=== PATIENT | female | born 1940 | race Caucasian/White ===

== ENCOUNTER 2017-07-17 11:39 | Inpatient (IN) | payer MEDICARE, OTHER ==
[~2017-07-17] VITALS: Ht 160 cm; Wt 74.6 kg
[2017-07-17] MEDS ORDERED: IPRATROPIUM BROMIDE 0.02% 2.5 ML NEB NEB STA (11:52)
[2017-07-17] MEDS ORDERED: ALBUTEROL SULF 0.083% NEB SOLN 3 ML NEB NEB STA (11:52)
[2017-07-17] MEDS ORDERED: CEFTRIAXONE SOD 1 GM VIAL IV SCH ×2 (12:00→14:45)
[2017-07-17 12:44] LABS: BASOPHILS # (AUTO) 0.1 (0.0-0.1); BASOPHILS % 0.7 % (0.0-1.0); EOSINOPHILS % 0.4 % (0.0-6.0); HEMATOCRIT 28.2 % (34.2-44.1); HEMOGLOBIN 9.1 g/dL (12.0-16.0); LYMPHOCYTES % 11.2 % (18.0-39.1); MEAN CORPUSCULAR HEMOGLOBIN 32.6 pg (28-32); MEAN CORPUSCULAR HGB CONC 32.3 g/dL (31-35); MEAN CORPUSCULAR VOLUME 101.1 fL (81-99); MONOCYTES # (AUTO) 0.6 (0.2-0.8); MONOCYTES % 6.5 % (4.4-11.3); NEUTROPHILS # (AUTO) 7.4 (2.1-6.9); NEUTROPHILS % 80.7 % (38.7-80.0); PLATELET COUNT 343 x10e3/uL (140-360); RED BLOOD COUNT 2.79 x10e6/uL (3.6-5.1); RED CELL DISTRIBUTION WIDTH 19.8 % (11.7-14.4)
--- NOTE | 2017-07-17 13:03 | Diagnostic Imaging Report ---
EXAMINATION: CHEST SINGLE (PORTABLE) INDICATION: \S\ERMD ORDER \S\[id number] \S\1235 \S\Y COMPARISON: None FINDINGS: AP view TUBES and LINES: Right chest wall cardiac pacer with lead tips overlying the right atrium and right ventricle. LUNGS: Lungs are moderately inflated. Hilar fullness with bilateral interstitial opacities. Right basilar airspace opacity which is partially obscured by the cardiac pacer. PLEURA: Trace bilateral pleural effusions. No pneumothorax. HEART AND MEDIASTINUM: Cardiac silhouette is partially obscured but likely enlarged. Aortic arch calcifications. BONES AND SOFT TISSUES: No acute osseous lesion. Soft tissues are unremarkable. UPPER ABDOMEN: No free air under the diaphragm. IMPRESSION: 1. Interstitial pulmonary edema with trace bilateral pleural effusions. 2. Right basilar airspace opacity may represent atelectasis, edema, or developing consolidation. Signed by: DR. Talon Vang MD on 07/17/2017 12:59 PM
[2017-07-17 13:04] LABS: ALBUMIN 3.3 g/dL (3.5-5.0); ALBUMIN/GLOBULIN RATIO 0.9 (0.8-2.0); ANION GAP 22.4 mmol/L (8-16); CALCIUM 10.6 mg/dL (8.4-10.2); CREATININE, SERUM 5.12 mg/dL (0.57-1.11)
[2017-07-17 13:05] LABS: INR 1.21; PARTIAL THROMBOPLASTIN TIME 23.8 seconds (23.8-35.5); PROTHROMBIN TIME 14.4 seconds (11.9-14.5)
[2017-07-17 13:06] LABS: POTASSIUM 4.4 mmol/L (3.5-5.1)
[2017-07-17 13:10] LABS: CREATINE KINASE MB 1.4 ng/mL (0-5.0)
[2017-07-17] MEDS ORDERED: ADENOSINE 6MG/2ML 0 ML ONE (13:24)
[2017-07-17 13:40] LABS: B-TYPE NATRIURETIC PEPTIDE2 > 5000.0 pg/mL (0-100)
[2017-07-17] MEDS ORDERED: AZITHROMYCIN 500MG/NS 250 ML 250 ML IV ONE (13:45)
[2017-07-17] MEDS: CEFTRIAXONE SOD 1 GM VIAL IV SCH (13:48)
[2017-07-17] MEDS ORDERED: FUROSEMIDE INJ 10 MG/ML 4 ML VIAL IV ONE (14:30)
[2017-07-17] MEDS ORDERED: AZITHROMYCIN 500MG/SOD CHL 0.9% 250ML BAG IV SCH (14:45)
[2017-07-17] MEDS ORDERED: ASPIRIN 325 MG TAB PO ONE (14:45)
[2017-07-17] MEDS ORDERED: RENVELA0.8 GM PO (15:31)
[2017-07-17] MEDS ORDERED: DIALYVITE 800-1 EACH PO (15:31)
[2017-07-17] MEDS ORDERED: FUROSEMIDE40 MG PO (15:31)
[2017-07-17] MEDS ORDERED: CARVEDILOL12.5 MG PO (15:31)
[2017-07-17] MEDS ORDERED: HUMALOG MI100 UNIT/2 SC (15:31)
[2017-07-17] MEDS ORDERED: ISOSORBIDE MONO30 MG PO (15:31)
[2017-07-17] MEDS ORDERED: NIFEDIPINE ER30 M1 PO (15:31)
[2017-07-17] MEDS ORDERED: PLAVIX75 MG PO (15:31)
[2017-07-17] MEDS ORDERED: FERROUS SULFAT325 MG PO (15:34)
[2017-07-17] MEDS ORDERED: NIACIN500 M2 PO (15:34)
[2017-07-17] MEDS ORDERED: VITAMIN D1000 UNI1 PO (15:34)
[2017-07-17 15:44] LABS: BILIRUBIN,URINE NEGATIVE (NEGATIVE); CLARITY,URINE CLEAR (CLEAR); COLOR,URINE YELLOW (YELLOW); KETONES,URINE NEGATIVE (NEGATIVE); LEUKOCYTE ESTERASE ,URINE NEGATIVE (NEGATIVE); NITRITE,URINE NEGATIVE (NEGATIVE); PROTEIN,URINE DIPSTICK 3+ (NEGATIVE); URINE UROBILINOGEN 0.2 mg/dL (0.2 - 1)
[2017-07-17 15:46] LABS: EPITHELIAL CELLS,URINE FEW /LPF; RBC,URINE 0-5 /HPF (0-5); WBC,URINE (MAN) 0-5 /HPF (0-5)
--- NOTE | 2017-07-17 16:01 | Diagnostic Imaging Report ---
EXAM: CT Chest WITH contrast 07/17/2017 1:32 PM INDICATION: \S\SOB r/o PE COMPARISON: Chest radiograph 07/17/2017 TECHNIQUE: Chest was scanned utilizing a multidetector helical scanner from the lung apex through the level of the adrenal glands without administration of IV contrast. Coronal and sagittal reformations were obtained. PE protocol was performed. IV CONTRAST: 100mL of Isovue-370 COMPLICATIONS: None RADIATION DOSE: Total DLP: 515.5 mGy*cm Estimated effective dose: (DLP x 0.014 x size factor) mSv CTDIvol has been reviewed. It is below the limits set by the Radiation Protocol Committee (RPC). FINDINGS: LINES/ TUBES: Right chest wall cardiac pacer with leads in the right atrium and right ventricle. LUNGS AND AIRWAYS: Smooth interlobular septal thickening and dependent groundglass opacities in keeping with pulmonary edema. Scattered atelectasis, more prominent in the right middle lobe and both lower lobes. Airways are normal. PLEURA: Moderate right and small left pleural effusions. No pneumothorax. HEART AND MEDIASTINUM: Right thyroid lobe 1.3 cm nodule. Limited evaluation of the right thyroid lobe secondary to metallic streak artifacts. No mediastinal, hilar or axillary lymphadenopathy. Heart is enlarged.. There is no pericardial effusion. Mitral annular calcifications. Three-vessel coronary artery calcifications and scattered aortic calcifications. No filling defects in the pulmonary arteries to the level of the subsegmental pulmonary arteries. Main pulmonary artery measures 2.6 cm in diameter. Ascending aorta measures 3.2 cm in diameter. UPPER ABDOMEN: Reflux of contrast into the hepatic veins suggestive of right heart dysfunction. Diffuse vascular calcifications. Otherwise, the limited views are grossly unremarkable. BONES: No acute or suspicious osseous lesions. SOFT TISSUES: Unremarkable. IMPRESSION: 1. Interstitial edema with moderate right and small left pleural effusions. 2. No pulmonary embolus to the level of the subsegmental pulmonary arteries. Signed by: DR. Talon Vagn MD on 07/17/2017 3:57 PM
--- NOTE | 2017-07-17 16:53 | Consultation ---
DATE OF CONSULTATION: July 17, 2017 RENAL CONSULTATION Thank you for the consultation. HISTORY OF PRESENT ILLNESS: Ms. Loza is a well known patient of ours, 77-year-old female patient with past medical history significant for end-stage renal disease on hemodialysis Wednesday, Wednesday, and Wednesday at [facility] under our care. The patient apparently started to have more worsening shortness of breath, went to her primary care physician this morning, was asked to go to the ER for possible pneumonia. In the emergency room, she had a chest x-ray done and chest x-ray is consistent with interstitial pulmonary edema with trace bilateral pleural effusions, also right basilar opacity which could be a pneumonia as well. In any case, the patient is being admitted to the hospital. She is in need for a short dialysis treatment today especially since the patient did dialyze yesterday; however, did not stay for her full treatment and she appears on the fluid overload status at this time. No current nausea. No current vomiting. No chest pain. No abdominal pain. Does have shortness of breath. No other symptoms. No fever or chills at this time. PAST MEDICAL HISTORY: End-stage renal disease, on hemodialysis Wednesday, Wednesday, and Wednesday, history of diabetes mellitus type 2, history of hypertension, and history of congestive heart failure. MEDICATIONS: She takes carvedilol, Plavix, furosemide, insulin, nifedipine, and sevelamer. REVIEW OF SYSTEMS: See HPI, otherwise all systems negative. ALLERGIES: SULFONAMIDES AND LABETALOL. SOCIAL HISTORY: No tobacco, no alcohol use. FAMILY HISTORY: Noncontributory. PHYSICAL EXAMINATION VITAL SIGNS: Blood pressure is 125/43, heart rate 83, respirations 23, and afebrile. HEENT: No cervical lymphadenopathy. NECK: Supple without masses. No obvious JVD. Moist-appearing mucosa. SKIN: Moist with good skin turgor. CHEST WALL: Good expansion. No chest wall tenderness. LUNGS: Rales diffusely bilaterally over the lung wells. CARDIOVASCULAR: S1 and S2. No obvious gallop, rub, or murmur. ABDOMEN: Soft. Positive bowel sounds. Nontender. No organomegaly. EXTREMITIES: Evidence of 2+ edema bilaterally over lower extremities. No clubbing. No cyanosis. NEUROLOGICAL: Awake, alert, oriented x 3. Grossly otherwise nonfocal exam. LABORATORY DATA: Labs from today are as follows: Hemoglobin 9.1, hematocrit 28.2, sodium 141, potassium 4.4, chloride 100, bicarb 23, BUN is 39, creatinine is 5.1, and glucose 194. IMPRESSION AND PLAN 1. End-stage renal disease. We will continue dialysis Wednesday, Wednesday, and Wednesday and we will do a dialysis treatment today for two and half hours. We will try to ultrafilter about 2 to 3 liters, which will help improve the patient's overall breathing status. 2. Hypertension. Blood pressure is currently stable. Continue to monitor closely and make further recommendations. 1. Anemia found to be stable. We will continue to monitor closely. 1. Pneumonia: Plan would be as per primary MD. Thank you once again for the consult. Job#: [id number] PAT cc:Lara Ewing MD
[2017-07-17 17:18] VITALS: BP 109/55
[2017-07-17] MEDS ORDERED: SODIUM CHLORIDE 0.9% 50ML 100 ML ONE (18:32)
[2017-07-17] MEDS ORDERED: IOPAMIDOL 370 MG/ML 200 ML INFUS..BTL INJ ONE (18:32)
[2017-07-17] MEDS ORDERED: ALBUMIN 25% 12.5GM 0.25 GM/ML BTL IV PRN (19:15)
[2017-07-17] MEDS ORDERED: SODIUM CHLORIDE 0.9% 1000ML 2,000 ML IV PRN (19:15)
[2017-07-17] MEDS ORDERED: MANNITOL 25% 12.5GM/50 ML VIAL IV PRN (19:15)
[2017-07-17] MEDS ORDERED: SODIUM CHLORIDE 0.9% 250ML 500 ML IV PRN (19:15)
[2017-07-17 19:42] VITALS: BP 109/55
[2017-07-17 20:31] VITALS: BP 116/55
[2017-07-17 23:54] VITALS: BP 112/42
[2017-07-18] VITALS (33 sets, daily range): BP systolic 37–156; BP diastolic 20–78
[2017-07-18] MEDS: CEFTRIAXONE SOD 1 GM VIAL IV SCH ×2 (02:00→14:16)
[2017-07-18 06:26] LABS: BASOPHILS # (AUTO) 0.1 (0.0-0.1); BASOPHILS % 0.7 % (0.0-1.0); EOSINOPHILS # (AUTO) 0.1 (0.0-0.4); EOSINOPHILS % 1.1 % (0.0-6.0); HEMATOCRIT 24.7 % (34.2-44.1); LYMPHOCYTES # (AUTO) 1.1 (1.0-3.2); LYMPHOCYTES % 13.8 % (18.0-39.1); MEAN CORPUSCULAR HGB CONC 31.6 g/dL (31-35); MEAN CORPUSCULAR VOLUME 101.2 fL (81-99); MONOCYTES # (AUTO) 0.5 (0.2-0.8); NEUTROPHILS # (AUTO) 6.4 (2.1-6.9); NEUTROPHILS % 77.8 % (38.7-80.0); PLATELET COUNT 245 x10e3/uL (140-360); RED BLOOD COUNT 2.44 x10e6/uL (3.6-5.1); RED CELL DISTRIBUTION WIDTH 19.8 % (11.7-14.4)
[2017-07-18 06:29] LABS: HEMOGLOBIN 7.8 g/dL (12.0-16.0)
[2017-07-18 06:44] LABS: ANION GAP 18.4 mmol/L (8-16); CALCIUM 10.1 mg/dL (8.4-10.2); CREATININE, SERUM 4.18 mg/dL (0.57-1.11); MAGNESIUM 1.9 MG/DL (1.3-2.1); PHOSPHORUS 6.4 MG/DL (2.3-4.7); POTASSIUM 4.4 mmol/L (3.5-5.1)
[2017-07-18 06:58] LABS: CREATINE KINASE MB 1.1 ng/mL (0-5.0)
[2017-07-18 08:46] LABS: HEMATOCRIT 24.9 % (34.2-44.1)
[2017-07-18] MEDS ORDERED: CARVEDILOL 12.5 MG TAB PO SCH (09:00)
[2017-07-18] MEDS: ASPIRIN 81 MG ENTERIC COATED PO SCH (09:10)
[2017-07-18] MEDS: ISOSORBIDE MONONITRATE 30 MG TAB CR PO SCH ×2 (09:11→17:00)
--- NOTE | 2017-07-18 10:11 | Consultation ---
DATE OF CONSULTATION: July 18, 2017 CARDIOLOGY CONSULTATION REASON FOR CONSULTATION: Congestive heart failure. HISTORY OF PRESENT ILLNESS: Ms. 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 Was readmitted after she saw her primary care physician and was found to have a pneumonia on her chest x-ray with mild increase in shortness of breath. However, no fever or cough. Since admission she has had a chest x-ray and chest CT scan that shows bilateral effusions without evidence of consolidation. She is currently feeling better but continues to be weak and debilitated. PAST MEDICAL HISTORY: As listed above. SOCIAL HISTORY: Patient does not smoke at present. Denies using alcohol. DRUG ALLERGIES: SULFA AND LABETALOL. FAMILY HISTORY: Noncontributory. REVIEW OF SYSTEMS: Is negative except as dictated in the history of present illness. PHYSICAL EXAMINATION: VITALS: Afebrile. Heart rate 77. Blood pressure 134/62. O2 sat is 95% on 2 liters nasal cannula. CARDIOVASCULAR: Regular rhythm. S3 gallop. Systolic murmur. LUNGS: Crackles in both sides with decreased breath sounds, more so on the right base. Chest x-ray, CT scan were reviewed. ABDOMEN: Mildly distended. Hemoglobin is 8. Serum creatinine 4.18. BNP is in excess of 5000. Cardiac troponin is 0.36. ASSESSMENT: 1. Acute on chronic systolic heart failure. 2. Volume overload in the setting of end-stage renal disease. 3. Severe coronary artery disease. 4. Supraventricular tachycardia with a prior history of symptomatic bradycardia status post dual-chamber pacemaker placement. RECOMMENDATION: Ms. Loza has severe coronary artery disease. I will review her angiogram done at [place]. Echocardiogram has been ordered. She is a candidate for either high-risk percutaneous coronary intervention or high-risk coronary artery bypass surgery as definitive therapy for her coronary artery disease. In the interim, aggressive dialysis with removal of fluid as tolerated. Beta azalia, statin, nitrates, and aspirin has been reinitiated. I will withhold clopidogrel treatment given a potential for upcoming coronary bypass surgery. I thank Dr. Ewing for this consultation. Job#: [id number] EV
[2017-07-18] MEDS: AZITHROMYCIN 500MG/NS 250 ML 250 ML IV SCH (13:15)
[2017-07-18] MEDS ORDERED: ALBUTEROL/IPRATROPIUM 3 ML NEB ONE (14:37)
[2017-07-18 14:41] LABS: BASOPHILS % 0.5 % (0.0-1.0); EOSINOPHILS # (AUTO) 0.1 (0.0-0.4); HEMATOCRIT 25.2 % (34.2-44.1); LYMPHOCYTES # (AUTO) 0.9 (1.0-3.2); LYMPHOCYTES % 12.5 % (18.0-39.1); MEAN CORPUSCULAR HEMOGLOBIN 32.8 pg (28-32); MEAN CORPUSCULAR VOLUME 105.9 fL (81-99); MONOCYTES # (AUTO) 0.5 (0.2-0.8); MONOCYTES % 6.7 % (4.4-11.3); NEUTROPHILS # (AUTO) 5.8 (2.1-6.9); NEUTROPHILS % 78.8 % (38.7-80.0); PLATELET COUNT 241 x10e3/uL (140-360); RED BLOOD COUNT 2.38 x10e6/uL (3.6-5.1); RED CELL DISTRIBUTION WIDTH 20.1 % (11.7-14.4)
[2017-07-18] MEDS ORDERED: ONDANSETRON HCL INJ 2 MG/ML VIAL ONE (14:41)
[2017-07-18 14:46] LABS: CREATINE KINASE MB 1.7 ng/mL (0-5.0)
[2017-07-18 14:47] LABS: HEMOGLOBIN 7.8 g/dL (12.0-16.0)
[2017-07-18 14:57] LABS: ANION GAP 22.3 mmol/L (8-16); POTASSIUM 5.3 mmol/L (3.5-5.1)
[2017-07-18] MEDS ORDERED: FUROSEMIDE INJ 10 MG/ML 4 ML VIAL IV ONE (15:00)
[2017-07-18] MEDS ORDERED: FUROSEMIDE INJ 10 MG/ML 4 ML VIAL IV NR (15:00)
[2017-07-18 15:09] LABS: ABG HCO3 20 mmol/L (23-28); ABG PCO2 25 mmHg (41-51); ABG PH 7.51 (7.31-7.41); ABG PO2 96 mmHg (80-105)
--- NOTE | 2017-07-18 15:16 | Diagnostic Imaging Report ---
EXAMINATION: CHEST SINGLE (PORTABLE) INDICATION: CHF. Pneumonia. COMPARISON: 07/17/2017. FINDINGS: AP view TUBES and LINES: Right chest wall cardiac pacer with lead tips overlying the right atrium and right ventricle, unchanged. LUNGS: Interval increase in bilateral pulmonary edema. PLEURA: Mild increase in bilateral pleural effusions. No pneumothorax. HEART AND MEDIASTINUM: Cardiac silhouette is moderately enlarged.. Aortic arch calcifications. BONES AND SOFT TISSUES: No acute osseous lesion. UPPER ABDOMEN: No free air under the diaphragm. IMPRESSION: Interval increase in bilateral pulmonary edema. Signed by: Dr. Avani Murrieta M.D. on 07/18/2017 3:12 PM
[2017-07-18] MEDS ORDERED: ALBUTEROL/IPRATROPIUM 3 ML NEB NEB ONE (15:45)
[2017-07-18] MEDS ORDERED: SODIUM BICARBONATE 8.4% INJ 50 ML SYR IV ONE (16:30)
[2017-07-18] MEDS ORDERED: SODIUM CHLORIDE 0.9% 250ML 250 ML IV ONE (16:30)
--- NOTE | 2017-07-18 16:49 | Progress Note ---
DATE: July 18, 2017 RENAL PROGRESS NOTE SUBJECTIVE: Patient was seen yesterday in the emergency room. She has been admitted for pneumonia and persistent fluid overload. She had a dialysis treatment of 2-1/2 hours yesterday. About 2.5 liters of fluid were pulled. However, this afternoon she is in more respiratory distress. Chest x-ray shows interval worsening of her pulmonary edema. Patient has been transferred to the ICU on BiPAP. Suspect cardiac origin of the pulmonary edema. Cardiology is on the case, also. Patient will likely require another dialysis treatment later this evening. Dialysis nurse has been contacted to come and dialyze the patient stat. No nausea, no vomiting. Does have shortness of breath. OBJECTIVE VITAL SIGNS: Vital signs are noted. Blood pressure, last one recorded, was 99/61. Pulse 60. Afebrile. LUNGS: Rhonchi bilaterally. CARDIOVASCULAR: S1 and S2. No rub. ABDOMEN: Soft, nontender. EXTREMITIES: No edema. LABS: H\T\H 7.8, 25.2. Sodium 135, potassium 5.3, bicarb of 19, chloride 99. Earlier bicarb was 23, potassium was 4.4, sodium was 138 and creatinine 4.18. IMPRESSION AND PLAN 1. End-stage renal disease. Will do stat dialysis again today. Patient is getting hyperkalemic and getting metabolic acidosis likely from hyperperfusion state. Patient may get transferred to [facility] for intra-aortic balloon pump if Cardiology deems that necessary. I have called the dialysis nurse in to do urgent dialysis. 2. Hypotension. Hold all blood pressure oral medications and place on renal-dose dopamine, titrate up as needed to keep systolic BP above 90 mmHg or MAP greater than 65. 3. Mild hyperkalemia. Will give 1 amp of bicarb IV push now and will do urgent dialysis as soon as the dialysis nurse is here. 4. Metabolic acidosis. Will correct with dialysis and also will give 1 to 2 amps of bicarb now. 5. Anemia. Will transfuse 2 units PRBCs with dialysis. Thank you once again. Job#: [id number] EV
[2017-07-18] MEDS ORDERED: SODIUM BICARBONATE 8.4% SYRING 50 ML ONE (18:31)
[2017-07-18] MEDS ORDERED: SODIUM CHLORIDE 0.9% 250ML 250 ML ONE (18:32)
--- NOTE | 2017-07-18 19:20 | Diagnostic Imaging Report ---
CHEST SINGLE (PORTABLE), 07/18/2017 6:37 PM Technique: CHEST SINGLE (PORTABLE) Comparison: 07/18/2017 Clinical history: Central line placement Findings: See Impression Impression: 1. Lines/Tubes: Status post right central venous catheter placement seen as far as the distal SVC, tip obscured by right pacer and overlying leads. 2. Stable cardiomegaly with bilateral opacities, favor edema, atelectasis and pleural effusions. No pneumothorax. Signed by: Dr Evelyn Niño MD on 07/18/2017 7:16 PM
[2017-07-18] MEDS ORDERED: ATORVASTATIN 20 MG TAB PO SCH (21:00)
[2017-07-18] MEDS: ATORVASTATIN 40 MG TAB PO SCH (21:00)
[2017-07-19] VITALS (64 sets, daily range): BP systolic 43–151; BP diastolic 31–91
[2017-07-19] MEDS: CEFTRIAXONE SOD 1 GM VIAL IV SCH ×2 (02:15→13:53)
[2017-07-19 06:30] LABS: BASOPHILS % 0.4 % (0.0-1.0); EOSINOPHILS # (AUTO) 0.1 (0.0-0.4); HEMATOCRIT 29.1 % (34.2-44.1); HEMOGLOBIN 9.7 g/dL (12.0-16.0); LYMPHOCYTES # (AUTO) 0.8 (1.0-3.2); LYMPHOCYTES % 8.1 % (18.0-39.1); MEAN CORPUSCULAR HEMOGLOBIN 32.1 pg (28-32); MEAN CORPUSCULAR HGB CONC 33.3 g/dL (31-35); MEAN CORPUSCULAR VOLUME 96.4 fL (81-99); MONOCYTES # (AUTO) 0.6 (0.2-0.8); MONOCYTES % 6.4 % (4.4-11.3); NEUTROPHILS # (AUTO) 7.9 (2.1-6.9); NEUTROPHILS % 83.6 % (38.7-80.0); PLATELET COUNT 220 x10e3/uL (140-360); RED BLOOD COUNT 3.02 x10e6/uL (3.6-5.1); RED CELL DISTRIBUTION WIDTH 20.9 % (11.7-14.4)
--- NOTE | 2017-07-19 06:32 | Diagnostic Imaging Report ---
CHEST SINGLE (PORTABLE), 07/19/2017 5:00 AM Technique: CHEST SINGLE (PORTABLE) Comparison: 07/18/2017 Clinical history: Dyspnea, fluid overload Findings: See Impression Impression: 1. Lines/Tubes: Status post right central venous catheter seen as far as the cavoatrial junction and right pacer. 2. Stable cardiomegaly with bilateral opacities, favor edema, atelectasis and pleural effusions. No pneumothorax. Signed by: Dr Evelyn Niño MD on 07/19/2017 6:28 AM
[2017-07-19 07:04] LABS: ANION GAP 15.6 mmol/L (8-16); CALCIUM 10.2 mg/dL (8.4-10.2); CREATININE, SERUM 3.2 mg/dL (0.57-1.11); MAGNESIUM 1.7 MG/DL (1.3-2.1); PHOSPHORUS 5.4 MG/DL (2.3-4.7); POTASSIUM 3.6 mmol/L (3.5-5.1)
[2017-07-19] MEDS: ISOSORBIDE MONONITRATE 30 MG TAB CR PO SCH ×2 (08:43→18:10)
[2017-07-19] MEDS: ASPIRIN 81 MG ENTERIC COATED PO SCH (08:43)
--- NOTE | 2017-07-19 10:03 | Progress Note ---
DATE: July 19, 2017 REASON FOR CONSULTATION: End-stage renal disease. SUBJECTIVE: No acute events overnight. Laying comfortably in bed. PHYSICAL EXAMINATION GENERAL: Laying comfortably in bed in no acute distress. VITAL SIGNS: Heart rate 72, respiratory rate 18, blood pressure 111/78, O2 sat is 99%. CHEST: Clear to auscultation bilaterally. No wheezing. No rales. HEART: Regular rate and rhythm. No S3 or S4. ABDOMEN: Soft, nontender and nondistended. EXTREMITIES: No edema. Labs reviewed in electronic medical records. Significant for hemoglobin of 9.7. Potassium was 36, bicarb 30. MEDICATIONS: Reviewed in the electronic medical record. IMAGING: Was reviewed in the electronic medical record. Chest x-ray performed today showed bilateral opacities concerning for edema. ASSESSMENT AND PLAN 1. End-stage renal disease: Will continue dialysis on a TTS schedule. 2. Volume overload: Fluid removed yesterday. Will continue removal as tolerated with dialysis. 3. Anemia of end-stage renal disease: Hemoglobin 9.7. Will resume Epo as an outpatient. 4. Metabolic acidosis: Improved with dialysis. Job#: [id number] RUBÉN
[2017-07-19] MEDS: AZITHROMYCIN 500MG/NS 250 ML 250 ML IV SCH (13:53)
--- NOTE | 2017-07-19 14:04 | Progress Note ---
DATE: July 19, 2017 CARDIOLOGY PROGRESS NOTE SUBJECTIVE: Patient denies chest pain or shortness of breath. She was seen sitting up in a chair at bedside. She has been weaned off vasopressors. OBJECTIVE VITALS: Temperature 97.7 degrees, pulse 65, respiratory rate 16, blood pressure 108/56, oxygen saturation 100% on 6 L nasal cannula. GENERAL: Thin woman, in no acute distress. Awake, alert. LUNGS: Crackles bilateral bases. No wheezes. CARDIOVASCULAR: Normal rate, regular rhythm. Systolic murmur. Normal S1, S2. ABDOMEN: Soft, nontender. EXTREMITIES: 1+ pitting edema. CARDIAC MEDICATIONS 1. Isosorbide mononitrate 30 mg p.o. b.i.d. 2. Aspirin 81 mg p.o. daily. 3. Atorvastatin 40 mg p.o. at bedtime. LABS: WBC 9.4, hemoglobin 9.7, hematocrit 29.1, platelets 220. Sodium 138, potassium 3.6, chloride 96, CO2 of 30, BUN 25, creatinine 3.2. TELEMETRY: Normal sinus rhythm. IMPRESSION 1. Acute on chronic systolic heart failure. 2. Volume overload in the sitting of end-stage renal disease. 3. Multivessel coronary artery disease. 4. Supraventricular tachycardia with prior history of symptomatic bradycardia, status post dural-chamber pacemaker placement. 5. Anemia of chronic disease. RECOMMENDATIONS: Continue current cardiac medicines. We will review the patient's recent cath images from [place]. It appears she has severe coronary artery disease. Decision regarding revascularization will be based on her coronary anatomy after review. In the meantime, volume management per nephrology. Please diurese as tolerated. Please ultrafiltrate as tolerated. Thank you for this consult. We will continue to follow. Job#: [id number] ALEXEY
[2017-07-19] MEDS: ATORVASTATIN 40 MG TAB PO SCH (20:50)
[2017-07-20] VITALS (74 sets, daily range): BP systolic 106–156; BP diastolic 55–109
[2017-07-20] MEDS: CEFTRIAXONE SOD 1 GM VIAL IV SCH ×2 (01:45→14:00)
[2017-07-20 06:05] LABS: BASOPHILS # (AUTO) 0.1 (0.0-0.1); BASOPHILS % 0.5 % (0.0-1.0); EOSINOPHILS # (AUTO) 0.2 (0.0-0.4); EOSINOPHILS % 1.8 % (0.0-6.0); HEMATOCRIT 30.3 % (34.2-44.1); HEMOGLOBIN 9.9 g/dL (12.0-16.0); LYMPHOCYTES # (AUTO) 1.2 (1.0-3.2); LYMPHOCYTES % 12.7 % (18.0-39.1); MEAN CORPUSCULAR HGB CONC 32.7 g/dL (31-35); MEAN CORPUSCULAR VOLUME 98.1 fL (81-99); MONOCYTES # (AUTO) 0.7 (0.2-0.8); NEUTROPHILS # (AUTO) 7.5 (2.1-6.9); NEUTROPHILS % 77.4 % (38.7-80.0); PLATELET COUNT 249 x10e3/uL (140-360); RED BLOOD COUNT 3.09 x10e6/uL (3.6-5.1); RED CELL DISTRIBUTION WIDTH 20.7 % (11.7-14.4)
--- NOTE | 2017-07-20 06:29 | Diagnostic Imaging Report ---
CHEST SINGLE (PORTABLE), 07/20/2017 at 5:34 AM Technique: CHEST SINGLE (PORTABLE) Comparison: 07/19/2017 Clinical history: Dyspnea, fluid overload Findings: See Impression Impression: 1. Lines/Tubes: Right IJ central venous catheter is stable in good position. Right-sided pacemaker is stable. 2. Stable cardiomegaly with bilateral opacities, compatible with edema, atelectasis and pleural effusions. No pneumothorax. Signed by: Dr. Brian Page M.D. on 07/20/2017 6:26 AM
[2017-07-20 06:38] LABS: ALBUMIN 2.9 g/dL (3.5-5.0); ALBUMIN/GLOBULIN RATIO 1.2 (0.8-2.0); ANION GAP 17.6 mmol/L (8-16); CALCIUM 9.7 mg/dL (8.4-10.2); CREATININE, SERUM 4.59 mg/dL (0.57-1.11); POTASSIUM 4.6 mmol/L (3.5-5.1)
[2017-07-20] MEDS: ASPIRIN 81 MG ENTERIC COATED PO SCH (08:27)
[2017-07-20] MEDS: ISOSORBIDE MONONITRATE 30 MG TAB CR PO SCH ×2 (08:27→17:28)
[2017-07-20] MEDS ORDERED: EPOETIN ALFA 10000 UNIT/ML VIAL SC SCH (11:00)
[2017-07-20 12:43] LABS: FERRITIN 650.69 ng/mL (4.63-204.00)
--- NOTE | 2017-07-20 12:53 | Diagnostic Imaging Report ---
Procedure: Temporary central venous catheter placement. Indication: Need for short-term central venous access. Comparison: None. Discussion: The procedure is performed at the bedside in the intensive care unit. Focused evaluation demonstrated the right chest cardiac device and a left upper extremity hemodialysis fistula. A focused sonographic evaluation of the neck demonstrated a patent and compressible right internal jugular vein. The right neck was prepped and draped in the usual sterile fashion. Utilizing ultrasound guidance, a 21-gauge needle was inserted into the right internal jugular vein. A 0.018 inch wire was advanced centrally. An access sheath was placed over the wire to secure the access. The wire was up sized to a 0.035 inch wire. A 0.035 inch wire was advanced into the inferior vena cava for stability. A single dilation was performed over the wire. A temporary central venous catheter was advanced over the wire. The wire was removed. The 3 ports demonstrated proper function with aspiration and flush. The lumens were flushed with sterile saline. The lumens were infused with heparin solution. The catheter was secured to the skin with 3-0 Ethilon suture. A sterile dressing was applied. There were no complications and the patient tolerated the procedure well. The patient remained in the ICU in stable unchanged condition for further monitoring. Impression: Successful placement of right internal jugular temporary central venous catheter utilizing ultrasound guidance. Signed by: Dr. Jorge Almonte M.D. on 07/20/2017 12:50 PM
--- NOTE | 2017-07-20 13:41 | Progress Note ---
DATE: July 20, 2017 CARDIOLOGY PROGRESS NOTE SUBJECTIVE: Patient denies chest pain or shortness of breath. She was receiving hemodialysis today. OBJECTIVE VITALS: Temperature 97.9 degrees, pulse 68, respiratory rate 18, blood pressure 138/66, oxygen saturation 100% on 2 L nasal cannula. GENERAL: Awake, alert, in no acute distress. LUNGS: Clear to auscultation bilaterally. No wheezes or crackles. CARDIOVASCULAR: Normal rate, regular rhythm. Systolic murmur. Normal S1, S2. ABDOMEN: Soft, nontender. EXTREMITIES: 1+ pitting edema. CARDIAC MEDICATIONS 1. Isosorbide mononitrate 30 mg p.o. b.i.d. 2. Aspirin 81 mg p.o. daily. 3. Atorvastatin 40 mg p.o. at bedtime. LABS: WBC 9.66, hemoglobin 9.9, hematocrit 30.3, platelets 249. Sodium 137, potassium 4.6, chloride 95, CO2 of 29, BUN 45, creatinine 4.59. TELEMETRY: Normal sinus rhythm. IMPRESSION 1. Acute on chronic systolic heart failure. 2. Volume overload in the sitting of end-stage renal disease. 3. Multivessel coronary artery disease. 4. Supraventricular tachycardia with prior history of symptomatic bradycardia, status post dural-chamber pacemaker placement. 5. Anemia of chronic disease. RECOMMENDATIONS: Continue current cardiac medications. Patient's cath images from [place] were reviewed. She has severe multivessel CAD. Patient reports; however, she was evaluated by CT surgery with regards to CABG. She declined proceeding as she felt the risk was too high. We will discuss with her outpatient telephone lineman, Dr. Holcomb, possible multivessel PCI. Volume management per nephrology due to end-stage renal disease. Recommend further ultrafiltration. Thank you for this consult. We will continue to follow. Job#: [id number] CINDY
[2017-07-20] MEDS: AZITHROMYCIN 500MG/NS 250 ML 250 ML IV SCH (14:00)
--- NOTE | 2017-07-20 16:14 | Progress Note ---
DATE: July 20, 2017 SUBJECTIVE: Seen on dialysis, blood flow of 350 mL per minute. PHYSICAL EXAMINATION LUNGS: Clear to auscultation bilaterally. No wheezing. No rales. HEART: Regular rhythm. ABDOMEN: Soft, nontender. EXTREMITIES: No edema. LABS: Reviewed in electronic medical record and significant for hemoglobin of 9.9 and BUN of 45. IMAGING: Reviewed in electronic medical record. Chest x-ray performed today showed stable cardiomegaly with bilateral opacities, compatible with edema. ASSESSMENT AND PLAN 1. End-stage renal disease, seen on dialysis today. We will continue HD on a Wednesday, , and Wednesday schedule. 2. Anemia of chronic kidney disease. We will check a TSAT and ferritin and resume Epogen. 3. Urinary tract infection. Continue ceftriaxone. 4. Hypertension. She is hypertensive at baseline. We will continue to monitor blood pressures closely. Job#: [id number] VAS
[2017-07-20] MEDS: ATORVASTATIN 40 MG TAB PO SCH (23:15)
[2017-07-21] VITALS (40 sets, daily range): BP systolic 133–163; BP diastolic 60–103
[2017-07-21] MEDS: CEFTRIAXONE SOD 1 GM VIAL IV SCH ×2 (01:46→13:45)
[2017-07-21 05:43] LABS: BASOPHILS # (AUTO) 0.1 (0.0-0.1); BASOPHILS % 0.9 % (0.0-1.0); EOSINOPHILS # (AUTO) 0.2 (0.0-0.4); EOSINOPHILS % 2.5 % (0.0-6.0); HEMATOCRIT 32.4 % (34.2-44.1); HEMOGLOBIN 10.4 g/dL (12.0-16.0); LYMPHOCYTES # (AUTO) 1.3 (1.0-3.2); LYMPHOCYTES % 13.7 % (18.0-39.1); MEAN CORPUSCULAR HEMOGLOBIN 31.7 pg (28-32); MEAN CORPUSCULAR HGB CONC 32.1 g/dL (31-35); MEAN CORPUSCULAR VOLUME 98.8 fL (81-99); MONOCYTES # (AUTO) 0.6 (0.2-0.8); NEUTROPHILS # (AUTO) 6.9 (2.1-6.9); NEUTROPHILS % 75.6 % (38.7-80.0); PLATELET COUNT 270 x10e3/uL (140-360); RED BLOOD COUNT 3.28 x10e6/uL (3.6-5.1); RED CELL DISTRIBUTION WIDTH 19.5 % (11.7-14.4)
[2017-07-21 06:06] LABS: ALBUMIN 2.9 g/dL (3.5-5.0); ANION GAP 16.2 mmol/L (8-16); CREATININE, SERUM 3.91 mg/dL (0.57-1.11); POTASSIUM 4.2 mmol/L (3.5-5.1)
--- NOTE | 2017-07-21 06:08 | Diagnostic Imaging Report ---
CHEST SINGLE (PORTABLE), 07/21/2017 5:00 AM Technique: CHEST SINGLE (PORTABLE) Comparison: 07/20/2017 Clinical history: Dyspnea, fluid overload Findings: See Impression Impression: 1. Lines/Tubes: Right IJ central venous catheter is stable in good position. Right-sided pacemaker is stable. 2. Worsening cardiogenic edema, compatible with edema. No pneumothorax Signed by: Dr. Brian Page M.D. on 07/21/2017 6:04 AM
[2017-07-21] MEDS: ISOSORBIDE MONONITRATE 30 MG TAB CR PO SCH ×2 (08:21→17:05)
[2017-07-21] MEDS: ASPIRIN 81 MG ENTERIC COATED PO SCH (08:21)
--- NOTE | 2017-07-21 10:44 | Progress Note ---
DATE: July 21, 2017 REASON FOR CONSULTATION: End-stage renal disease. SUBJECTIVE: No acute events overnight. OBJECTIVE GENERAL: Lying comfortably in bed. VITAL SIGNS: Heart rate 72, respiratory rate 18, blood pressure 140/69, and O2 sat is 95% on 4 L nasal cannula. LUNGS: Clear to auscultation bilaterally. No wheezing or rales. HEART: Regular rate and rhythm. EXTREMITIES: No edema. Labs reviewed in electronic medical record. Significant for hemoglobin of 10.4, BUN of 32, creatinine of 3.1. MEDICATIONS: Reviewed in electronic medical record. ASSESSMENT AND PLAN 1. End-stage renal disease: Electrolytes and volume status reviewed today. Will hold off on dialysis today. 2. Urinary tract infection: Will continue ceftriaxone. 3. Anemia of chronic kidney disease: Hemoglobin improved. Will decrease Epo to 2000 units. Job#: [id number] RUBÉN
[2017-07-21] MEDS: AZITHROMYCIN 500MG/NS 250 ML 250 ML IV SCH (13:00)
--- NOTE | 2017-07-21 18:26 | Progress Note ---
DATE: July 21, 2017 CARDIOLOGY PROGRESS NOTE SUBJECTIVE: The patient denies chest pain or shortness of breath. She is undergoing evaluation for transfer to [facility]. OBJECTIVE VITALS: Temperature 96.8 degrees, pulse 79, respiratory rate 18, blood pressure 147/68, oxygen saturation 95% on 4 L nasal cannula. GENERAL: Awake, alert and in no acute distress. LUNGS: Clear to auscultation bilaterally. No wheezes or crackles. CARDIOVASCULAR: Normal rate and regular rhythm. Systolic murmur. Normal S1 and S2. ABDOMEN: Soft and nontender. EXTREMITIES: One plus pitting edema. CARDIAC MEDICATIONS 1. Isosorbide mononitrate 30 mg p.o. b.i.d. 2. Aspirin 81 mg p.o. daily. 3. Atorvastatin 40 mg p.o. at bedtime. LABS: WBC 9.18, hemoglobin 10.4, hematocrit 32.4, and platelets 270,000. Sodium 137, potassium 4.2, chloride 100, CO2 25, BUN 32, creatinine 3.91. Telemetry is normal sinus rhythm. Chest x-ray with worsening cardiogenic edema. No pneumothorax. IMPRESSION 1. Osftg-[id number] systolic heart failure. 2. Volume overload in the setting of end-stage renal disease. 3. Multivessel coronary artery disease. 4. Supraventricular tachycardia with prior history of symptomatic bradycardia, status post dual chamber pacemaker placement. 5. Anemia of chronic disease. RECOMMENDATIONS: Continue current cardiac medications. The patient has severe multivessel coronary artery disease. However, after evaluation by CV surgery, she declined CABG as she felt the surgical risk was too high. We will have the patient follow up with us in the office to plan multivessel PCI with Dr. Holcomb. Volume management per nephrology due to end-stage renal disease. We will request further ultrafiltration given her significantly elevated BNP. Thank you for this consult. We will continue to follow. Job#: [id number] RUBÉN
[2017-07-21] MEDS: ATORVASTATIN 40 MG TAB PO SCH (23:01)
[2017-07-22] MEDS: CEFTRIAXONE SOD 1 GM VIAL IV SCH ×2 (01:36→13:45)
[2017-07-22 04:00] VITALS: BP 187/81
[2017-07-22 06:15] VITALS: BP 158/80
[2017-07-22 06:15] LABS: BASOPHILS # (AUTO) 0.1 (0.0-0.1); BASOPHILS % 0.7 % (0.0-1.0); EOSINOPHILS # (AUTO) 0.2 (0.0-0.4); EOSINOPHILS % 2.6 % (0.0-6.0); HEMATOCRIT 32.3 % (34.2-44.1); HEMOGLOBIN 10.6 g/dL (12.0-16.0); LYMPHOCYTES # (AUTO) 1.1 (1.0-3.2); LYMPHOCYTES % 12.5 % (18.0-39.1); MEAN CORPUSCULAR HEMOGLOBIN 31.5 pg (28-32); MEAN CORPUSCULAR HGB CONC 32.8 g/dL (31-35); MEAN CORPUSCULAR VOLUME 96.1 fL (81-99); MONOCYTES # (AUTO) 0.7 (0.2-0.8); MONOCYTES % 7.5 % (4.4-11.3); NEUTROPHILS # (AUTO) 6.7 (2.1-6.9); NEUTROPHILS % 76.2 % (38.7-80.0); PLATELET COUNT 246 x10e3/uL (140-360); RED BLOOD COUNT 3.36 x10e6/uL (3.6-5.1); RED CELL DISTRIBUTION WIDTH 18.7 % (11.7-14.4)
[2017-07-22 06:46] LABS: ALBUMIN 2.7 g/dL (3.5-5.0); ANION GAP 17.5 mmol/L (8-16); CALCIUM 10.1 mg/dL (8.4-10.2); CREATININE, SERUM 5.15 mg/dL (0.57-1.11); POTASSIUM 4.5 mmol/L (3.5-5.1)
[2017-07-22 08:00] VITALS: BP 184/86
[2017-07-22 08:30] VITALS: BP 184/86
[2017-07-22] MEDS: ISOSORBIDE MONONITRATE 30 MG TAB CR PO SCH ×2 (08:37→16:39)
[2017-07-22] MEDS: ASPIRIN 81 MG ENTERIC COATED PO SCH (08:37)
[2017-07-22] MEDS ORDERED: EPOETIN ALFA 10000 UNIT/ML VIAL SC SCH (11:00)
[2017-07-22] MEDS ORDERED: ALPRAZOLAM 0.5 MG TAB PO ONE (11:45)
[2017-07-22 12:00] VITALS: BP 163/84
--- NOTE | 2017-07-22 12:57 | Progress Note ---
DATE: July 22, 2017 REASON FOR CONSULTATION: End-stage renal disease. SUBJECTIVE: No acute events overnight. OBJECTIVE GENERAL: Lying comfortably in bed. VITAL SIGNS: Temperature 96, heart rate 80, respiratory rate 20, blood pressure 184/86, and O2 sat is 95% on 2 L nasal cannula. HEENT: NCAT, EOMI. NECK: Supple. JVD not appreciated. LUNGS: Crackles at the bases bilaterally. HEART: Regular rhythm. EXTREMITIES: No edema. LABORATORY DATA: Labs reviewed in electronic medical records. Significant for a BUN of 42. IMAGING: Chest x-ray was reviewed in electronic medical records. Worsening cardiogenic edema compatible with edema. ASSESSMENT AND PLAN 1. End-stage renal disease. We will put on dialysis with ultrafiltration and plan to do another session of ultrafiltration tomorrow if the remains inpatient. 2. Accelerated hypertension. Really improved with ultrafiltration. For now, we will avoid adding antihypertensives as I would like to hold as much fluid as possible. 1. Anemia of chronic kidney disease: Adjusted Epo dose - 2000 units. We will hold for now and we will resume as outpatient. Job#: [id number] NEAL
[2017-07-22] MEDS: AZITHROMYCIN 500MG/NS 250 ML 250 ML IV SCH (13:00)
[2017-07-22 15:48] VITALS: BP 158/76
--- NOTE | 2017-07-22 17:37 | Progress Note ---
DATE: July 22, 2017 CARDIOLOGY PROGRESS NOTE SUBJECTIVE: The patient denies chest pain; however, she states that she is short of breath and is very tachypneic on dialysis. OBJECTIVE VITAL SIGNS: Temperature 96.6 degrees, pulse 75, respiratory rate 18, blood pressure 163/84, oxygen saturation 96% on 2 liters nasal cannula. GENERAL: Awake, alert, mildly distressed, tachypneic. LUNGS: Clear to auscultation bilaterally. No wheezes or crackles. CARDIOVASCULAR: Normal rate and regular rhythm. Systolic murmur. Normal S1 and S2. ABDOMEN: Soft and nontender. EXTREMITIES: One plus pitting edema. CARDIAC MEDICATIONS 1. Isosorbide mononitrate 30 mg p.o. b.i.d. 2. Aspirin 81 mg p.o. daily. 3. Atorvastatin 40 mg p.o. at bedtime. LABS: WBC 8.78, hemoglobin 10.6, hematocrit 32.3, platelets 246,000, sodium 136, potassium 4.5, chloride 99, CO2 of 24, BUN 42, creatinine 5.15. TELEMETRY: Normal sinus rhythm. IMPRESSION 1. Nrxos-pf-nxemona severe systolic heart failure with ejection fraction 25% to 30%. Elevated estimated right ventricular systolic pressure. 2. Volume overload in the setting of end-stage renal disease. 3. Multivessel coronary artery disease. 4. Supraventricular tachycardia with prior history of symptomatic bradycardia, status post dual chamber pacemaker placement. 5. Anemia of chronic disease. RECOMMENDATIONS: Continue current cardiac medications. The patient has severe multivessel CAD; however, after evaluation by CV surgery she declined CABG as she felt surgical risk was too high. Plan to have the patient follow up with us in the office after discharge for a multivessel PCI. Volume management per nephrology. Have requested further ultrafiltration given her tachypnea, elevated BNP and severely reduced left ventricular systolic function. Thank you for this consult. We will continue to follow. Job#: [id number] SARAH WIGGINS
--- NOTE | 2017-09-18 12:18 | Discharge Summary ---
CHIEF COMPLAINT: Pneumonia, congestive heart failure, supraventricular tachycardia. FINAL DIAGNOSES 1. End-stage renal disease, dialysis dependent. 2. Acute over chronic congestive heart failure. 3. Diabetes, type 2. PROCEDURES 1. Transfusion of packed cells. 2. Dialysis program. 3. Ultrasound-guided central line, right internal jugular vein. DISPOSITION: [facility]. A 77-year-old female with a known history of coronary artery disease, chronic congestive heart failure, end-stage renal disease, dialysis dependent, brought to the ER with a several week history of increased shortness of breath and cough. On the date of admission, the patient became extremely dyspneic. Had chest pain. She also is known to be a historian of diabetes, type 2 and hypertension. She has an onboard pacemaker. She was evaluated in the ER. Chest was revealing inspiratory crackles and bibasilar rales. Heart was stable. Lower extremities revealed 2+ pitting edema. Further review and evaluation in the ER led to admission regarding findings of acute over chronic congestive heart failure, pulmonary edema, severe coronary artery disease, end-stage renal disease, dialysis dependent diabetes, type 2. With admission, the patient will be set up for urgent dialysis. Will have a cardiology request, as well as renal request. Will be monitoring her blood sugars. Regarding the emergent need for dialysis, Dr. Cervantes was asked to see the patient. He has a history with the patient. Has been on a program of a Wednesday, Wednesday and Wednesday schedule at [facility]. With his review of the patient and data, his impression was end-stage renal disease. Will continue dialysis on Wednesday, Wednesday and Wednesday schedule with his consult. Dialysis will be scheduled for 2-1/2 hours. Try to remove about 2-3 L. The congestive heart failure presentation was being reviewed by Dr. Holcomb, and with his review his assessment was acute on chronic systolic heart failure with BNP in excess of 5000, volume overload in the setting of end-stage renal disease, severe coronary artery disease, supraventricular tachycardia with prior history of symptomatic bradycardia, status post pacemaker. She is a candidate for either high risk percutaneous coronary intervention or high risk coronary artery bypass surgery as definite therapy for her coronary artery disease. In the interim, recommending aggressive dialysis with removal of fluid as tolerated. From the ER, the patient was in IMCU, on a cardiac diet. Was started on azithromycin 250 IV q.24 h. Was on IV fluids as well. Also, being given ceftriaxone 1 g IV q.12 h. Daily medications were being continued. Laboratory studies revealed stable electrolytes. Kidney functions: BUN 33, creatinine 4.18, glucose 132. CBC: Hemoglobin of 8 with a white cell count of 8200. She was set up for emergent dialysis with Dr. Cervantes. Her room status was upgraded to ICU. As she had her dialysis, she was noted be resting comfortably. She was feeling better. Antibiotics were continuing. Cardiac medications were being adjusted further. Repeat BUN was 25, creatinine was 3.2, glucose 94. Hemoglobin 9.7, white cell count 9400. She will be continuing with the aggressive dialysis under Dr. Cervantes's care. H and H were continued to be monitored closely. Discussions were being carried out with cardiology regarding the possible need for CABG to correct her conditions due to her severe multivessel coronary artery disease. The patient declined the procedure. She felt the risk was too high. Discussion now were made regarding possible intervention with multivessel PCI. As she was continuing with her care, her hemoglobin was stabilized and increasing. Her Epogen was being decreased. Continued to be maintained in ICU. Electrolytes were stable. She was undergoing SNF evaluation. Blood sugars and kidney functions were continuing to be monitored closely. Her final BUN 42. Final creatinine 5.15. Final white cell count 8700. She was accepted to the [facility]. Transferred there on July 22, 2017, in guarded condition. She did receive 2 units of packed RBCs during her stay, which was administered during dialysis procedure. EKGs are showing normal sinus rhythm, left axis deviation, anterior lateral infarct, age undetermined. Further EKGs reveals supraventricular tachycardia, left axis deviation, possible anteroseptal infarct, age undetermined, marked S/T abnormality, possible lateral subendocardial injury. Final EKG is demand atrial pacing, left anterior fascicular block. Echocardiogram with ejection fraction between 40% and 45%. No evidence of pericardial effusion. She was responding well to her dialysis studies and program with Dr. Cervantes. As mentioned, she was transferred to [facility] for continued care. Will continue to monitor her progress at that location. She will continue her current MAR sheet. She will continue on a full code status. Be maintained on a diabetic and renal diet. Continued on a Almeida catheter. She will continue on her dialysis programs through [facility] on Wednesday, Wednesday and Wednesday. I will be monitoring her progress at that facility and be evaluating her status routinely. On a side note, she did have a rapid event, which was like 218. She had a drop in her O2 sats. Noted at 88%. Had issues with confusion. She was on BiPAP. Studies were carried out. She was also given nebulizer treatments. Given IV medications. Her O2 sats jumped to 98%. Stabilized. She was not transferred to a higher level of care. She maintained in her current status. DICTATED BY JHONY GEORGES Job#: [id number] RUBÉN
== END 2017-07-22 17:59 | DRG 291 ==
LOC: ER 11:39 → ERHOLD 15:09 → IMCU 15:52 → ICU 07-18 15:13 → MED/SURG2 07-20 23:44 → ICU 07-20 23:44 → IMCU 07-21 13:15 → MED/SURG 07-21 22:21
PROC: 5A1D70Z Performance of Urinary Filtration, Intermittent, Less than 6 Hours Per Day (ICD-10-PCS; 2017-07-17)
PROC: 02HV33Z Insertion of Infusion Device into Superior Vena Cava, Percutaneous Approach (ICD-10-PCS; principal; 2017-07-18)
PROC: 30233N1 Transfusion of Nonautologous Red Blood Cells into Peripheral Vein, Percutaneous Approach (ICD-10-PCS; 2017-07-18)
PROC: 5A09357 Assistance with Respiratory Ventilation, Less than 24 Consecutive Hours, Continuous Positive Airway Pressure (ICD-10-PCS; 2017-07-18)
DX: I13.2 Hypertensive heart and chronic kidney disease with heart failure and with stage 5 chronic kidney disease, or end stage renal disease (principal); I50.23 Acute on chronic systolic (congestive) heart failure; J18.9 Pneumonia, unspecified organism; E87.2 Acidosis; E11.22 Type 2 diabetes mellitus with diabetic chronic kidney disease; I95.3 Hypotension of hemodialysis; E87.5 Hyperkalemia; N18.6 End stage renal disease; I47.1 Supraventricular tachycardia; Z99.2 Dependence on renal dialysis; Z79.4 Long term (current) use of insulin; D63.1 Anemia in chronic kidney disease; I25.10 Atherosclerotic heart disease of native coronary artery without angina pectoris; Z79.02 Long term (current) use of antithrombotics/antiplatelets
CPT/HCPCS: 36415; 36430; 36556; 36600; 71045; 71260; 74470; 76937; 80048; 80051; 80053; 81001; 82550; 82553; 82728; 82805; 82948; 83540; 83605; 83735; 83880; 84100; 84466; 84484; 85014; 85018; 85025; 85379; 85610; 85730; 86850; 86900; 86920; 87040; 87086; 87340; 87400; 90962; 93005; 93306; 94640; 94644; 94660; 99284; J0153; J0456; J0696; J1940; J2150; J2405; J7030; J7050; P9016; Q4081; Q9967

== ENCOUNTER 2017-08-27 23:32 | Emergency (ER) | payer MEDICARE, OTHER ==
[~2017-08-27] VITALS: Ht 160 cm; Wt 74.4 kg
[~2017-08-27 23:32] MED LIST: CARVEDILOL12.5 MG PO; DIALYVITE 800-1 EACH PO; FERROUS SULFAT325 MG PO; FUROSEMIDE40 MG PO; HUMALOG MI100 UNIT/2 SC; ISOSORBIDE MONO30 MG PO; NIACIN500 M2 PO; NIFEDIPINE ER30 M1 PO; PLAVIX75 MG PO; RENVELA0.8 GM PO; VITAMIN D1000 UNI1 PO
--- OUTSIDE RECORDS SUMMARY | 2017-08-27 23:34 | XMS REPORT | Continuity of Care Document ---
Author Author [facility] Organization [facility] Address [address] [place] [address] Phone Unavailable Care Team Providers Care Line Maintainer Name Role Phone CHRISTIANO TALBOT DO PCP Insurance Providers Guarantor Mya Tomlinson Address [address] [place] [address] Email PTDECLINED Payer Care Improvement Plus Policy Number [id number] Subscriber's Name Mya Tomlinson Relationship 18 Self / Same As Patient Effective Date 06 Advance Directives Directive Response Recorded Date/Time Does the patient have an advance directive? No 07/17/17 7:28pm If yes, is advance directive on file with [facility]? No 07/17/17 7:28pm If not on file with [facility] will patient provide a copy? No 07/17/17 7:28pm Do you have a Directive to Physician? No 07/17/17 12:53pm Do you have a Medical Power of Mental Health Coordinator? No 07/17/17 12:53pm Do you have an out of hospital Do Not Resuscitate Order? No 07/17/17 12:53pm Do you have any special needs we should be aware of? No 07/17/17 12:53pm Do you have a support person here with you today? Yes 07/17/17 12:53pm Did patient receive Notice of Privacy Practices? Yes 07/17/17 12:53pm Did patient receive patient rights and responsibilities? Yes 07/17/17 12:53pm Problems No problem information available. Medications Current Home Medications Medication Dose Units Route Directions Days Qty Instructions Start Date Carvedilol 12.5 Mg Tablet 25 Mg Oral Every 12 Hours 60 Tab Cholecalciferol (Vitamin D3) (Vitamin D) 1,000 Unit Tablet 1,000 Unit Oral Daily 30 Tab Clopidogrel Bisulfate (Plavix) 75 Mg Tablet 75 Mg Oral Daily 30 Tab Fa/Vit Bcomp&C/Zinc/Vitamin D3 (Dialyvite 800-Ultra D Tablet) 1 Each Tablet 1 Tab Oral Daily Ferrous Sulfate 325 Mg Tablet 1 Tab Oral Daily Furosemide 40 Mg Tablet 40 Mg Oral Twice A Day 30 Tab Insulin Npl/Insulin Lispro (Humalog Mix 75-25 Kwikpen) 100 Unit/1 Ml Insuln.pen Units Subcutaneously Isosorbide Mononitrate (Isosorbide Mononitrate Er) 30 Mg Tab.er.24h 60 Mg Oral Twice A Day 30 Tab Niacin 500 Mg Tabsr 500 Mg Oral Daily 30 Tab Nifedipine (Nifedipine Er) 30 Mg Tab.er.24 60 Mg Oral Every 12 Hours Sevelamer Carbonate (Renvela) 0.8 Gm Powd.pack 1,600 Mg Oral Three Times Daily With Meals Social History Social History Problem Response Recorded Date/Time Onset Date Status Hx Psychiatric Problems No 07/17/2017 7:28pm Not Applicable Not Applicable Smoking Status Start Date Stop Date Never Smoker Hospital Discharge Instructions No hospital discharge instruction information available. Plan of Care Discharge Date 07/22/17 5:59pm Disposition HOME HEALTH SERVICE Prescriptions See Medication Section Functional Status Query Response Date Recorded FUNCTIONAL STATUS . July 21, 2017 1:48pm Ambulation Ability Independent July 17, 2017 7:42pm Toileting Ability Maximum Assistance July 21, 2017 8:00am Allergies, Adverse Reactions, Alerts Allergen Type Severity Reaction Status Last Updated Sulfa (Sulfonamide Antibiotics) Allergy Unknown Active 07/17/17 Labetalol Allergy Unknown FACIAL SWELLING, BLISTERS Active 07/17/17 Immunizations No immunization information available. Vital Signs Acute Vital Signs Vital Response Date/Time Temperature (Fahrenheit) 96.0 degrees F (97.6 - 99.5) 07/22/2017 3:48pm Pulse Pulse Rate (adult) 76 bpm (60 - 90) 07/22/2017 3:48pm Respiratory Rate 20 bpm (12 - 24) 07/22/2017 3:48pm Blood Pressure 158/76 mm Hg 07/22/2017 3:48pm Height 5 ft 3 in 07/17/2017 12:03pm Weight 164.50 lb 07/22/2017 9:14am Body Mass Index 29.1 kg/m^2 07/22/2017 9:14am Results Laboratory Results Test Name Result Units Flags Reference Collection Date/Time Result Date/ Time Comments White Blood Count 8.78 x10e3/uL 4.8-10.8 07/22/2017 5:55am 07/22/2017 6 :17am Red Blood Count 3.36 x10e6/uL L 3.6-5.1 07/22/2017 5:55am 07/22/2017 6: 17am Hemoglobin 10.6 g/dL L 12.0-16.0 07/22/2017 5:55am 07/22/2017 6:17am Hematocrit 32.3 % L 34.2-44.1 07/22/2017 5:55am 07/22/2017 6:17am Mean Corpuscular Volume 96.1 fL 81-99 07/22/2017 5:55am 07/22/2017 6: 17am Mean Corpuscular Hemoglobin 31.5 pg 28-32 07/22/2017 5:55am 07/22/2017 6:17am Mean Corpuscular Hemoglobin Concent 32.8 g/dL 31-35 07/22/2017 5:55am 07/22/2017 6:17am Red Cell Distribution Width 18.7 % H 11.7-14.4 07/22/2017 5:55am 2017 6:17am Platelet Count 246 x10e3/uL 140-360 07/22/2017 5:55am 07/22/2017 6: 17am Neutrophils (%) (Auto) 76.2 % 38.7-80.0 07/22/2017 5:55am 07/22/2017 6: 17am Lymphocytes (%) (Auto) 12.5 % L 18.0-39.1 07/22/2017 5:5507/22/2017 6 :17am Monocytes (%) (Auto) 7.5 % 4.4-11.3 07/22/2017 5:5507/22/2017 6: 17am Eosinophils (%) (Auto) 2.6 % 0.0-6.0 07/22/2017 5:07/22/2017 6: 17am Basophils (%) (Auto) 0.7 % 0.0-1.0 07/22/2017 5:5507/22/2017 6:17am IM GRANULOCYTES % 0.5 % 0.0-1.0 07/22/2017 5:07/22/2017 6:17am Neutrophils # (Auto) 6.7 2.1-6.9 07/22/2017 5:07/22/2017 6:17am Lymphocytes # (Auto) 1.1 1.0-3.2 07/22/2017 5:07/22/2017 6:17am Monocytes # (Auto) 0.7 0.2-0.8 07/22/2017 5:5507/22/2017 6:17am Eosinophils # (Auto) 0.2 0.0-0.4 07/22/2017 5:07/22/2017 6:17am Basophils # (Auto) 0.1 0.0-0.1 07/22/2017 5:07/22/2017 6:17am Absolute Immature Granulocyte (auto 0.04 x10e3/uL 0-0.1 07/22/2017 5: 5507/22/2017 6:17am Prothrombin Time 14.4 seconds 11.9-14.5 07/17/2017 12:20pm 07/17/2017 1 :06pm Prothromb Time International Ratio 1.21 07/17/2017 12:20pm 2017 1:06pm Oral Anticoagulant Therapy INR Values: 1. Low Intensity Therapy 1.5 - 2.0 2. Moderate Intensity Therapy 2.0 - 3.0 3. High Intensity Therapy(1) 2.5 - 3.5 4. High Intensity Therapy(2) 3.0 - 4.0 5. Panic Value INR > 5.0 Activated Partial Thromboplast Time 23.8 seconds 23.8-35.5 07/17/2017 12 :20pm 07/17/2017 1:06pm D-Dimer Quantitative (PE/DVT) 2.37 ug/mLFEU H 0.00-0.45 07/17/2017 12: 15pm 07/17/2017 12:59pm As with all in vitro diagnostic tests, the test results should be interpreted by the physician in conjunction with clinical findings and other test results. Test results are reported in NEW D-dimer units(ug/mLFEU). Urine Color YELLOW YELLOW 07/17/2017 2:45pm 07/17/2017 3:46pm Urine Clarity CLEAR CLEAR 07/17/2017 2:45pm 07/17/2017 3:46pm Urine Specific [place] 1.010 1.010-1.025 07/17/2017 2:45pm 2017 3:46pm Urine pH 8 H 5 - 7 07/17/2017 2:45pm 07/17/2017 3:46pm Urine Leukocyte Esterase NEGATIVE NEGATIVE 07/17/2017 2:45pm 2017 3:46pm Urine Nitrite NEGATIVE NEGATIVE 07/17/2017 2:45pm 07/17/2017 3:46pm Urine Protein 3+ H NEGATIVE 07/17/2017 2:45pm 07/17/2017 3:46pm Urine Glucose (UA) TRACE H NEGATIVE 07/17/2017 2:45pm 07/17/2017 3: 46pm Urine Ketones NEGATIVE NEGATIVE 07/17/2017 2:45pm 07/17/2017 3:46pm Urine Urobilinogen 0.2 mg/dL 0.2 - 1 07/17/2017 2:45pm 07/17/2017 3: 46pm Urine Bilirubin NEGATIVE NEGATIVE 07/17/2017 2:45pm 07/17/2017 3: 46pm Urine Blood TRACE H NEGATIVE 07/17/2017 2:45pm 07/17/2017 3:46pm Urine WBC 0-5 /HPF 0-5 07/17/2017 2:45pm 07/17/2017 3:46pm Urine RBC 0-5 /HPF 0-5 07/17/2017 2:45pm 07/17/2017 3:46pm Urine Bacteria NONE /HPF NONE 07/17/2017 2:45pm 07/17/2017 3:46pm Urine Epithelial Cells FEW /LPF NONE 07/17/2017 2:45pm 07/17/2017 3: 46pm Sodium Level 136 mmol/L 136-145 07/22/2017 5:55am 07/22/2017 6:54am Potassium Level 4.5 mmol/L 3.5-5.1 07/22/2017 5:55am 07/22/2017 6:54am Chloride Level 99 mmol/L 98-107 07/22/2017 5:55am 07/22/2017 6:54am Influenza Virus Types A,B Antigen NEGATIVE NEGATIVE 07/17/2017 12: 15pm 07/17/2017 1:04pm Carbon Dioxide Level 24 mmol/L 07/22/2017 5:55am 07/22/2017 6: 54am Anion Gap 17.5 mmol/L H 8-16 07/22/2017 5:55am 07/22/2017 6:54am Blood Urea Nitrogen 42 mg/dL H 7-07/22/2017 5:55am 07/22/2017 6:54am Creatinine 5.15 mg/dL H 0.57-1.11 07/22/2017 5:55am 07/22/2017 6:54am BUN/Creatinine Ratio 8 6-07/22/2017 5:55am 07/22/2017 6:54am Estimat Glomerular Filtration Rate 8 ML/MIN L 60- 07/22/2017 5:55am 6:54am Ranges were taken from the National Kidney Disease Education Program and the National Kid[employer] Foundation literature. Reference ranges: 60 or greater: Normal 16-59 (for 3 consecutive months): Chronic kidney disease 15 or less: Kidney failure Glucose Level 136 mg/dL H 74-118 07/22/2017 5:55am 07/22/2017 6:54am Calcium Level 10.1 mg/dL 8.4-10.2 07/22/2017 5:55am 07/22/2017 6:54am Bedside Glucose 121 mg/dL H 70-120 07/22/2017 3:20pm 07/22/2017 3:43pm Meter ID: [id number] Lactic Acid Level 25.1 MG/DL H 4.5-19.8 07/17/2017 5:10pm 07/17/2017 5: 37pm Phosphorus Level 5.4 MG/DL H 2.3-4.7 07/19/2017 5:05am 07/19/2017 7: 04am Magnesium Level 1.7 MG/DL 1.3-2.1 07/19/2017 5:05am 07/19/2017 7:04am Iron Level 43 ug/dL L 50-170 07/20/2017 5:10am 07/20/2017 12:26pm Total Iron Binding Capacity 216 ug/dL L 261-478 07/20/2017 5:10am 2017 12:26pm Percent Iron Saturation 20 % 15-50 07/20/2017 5:10am 07/20/2017 12: 26pm Transferrin 154 mg/dL L 180-382 07/20/2017 5:10am 07/20/2017 12:26pm Ferritin 650.69 ng/mL H 4.63-204.00 07/20/2017 5:10am 07/20/2017 12: 44pm Total Bilirubin 0.4 mg/dL 0.2-1.2 07/22/2017 5:55am 07/22/2017 6:54am Aspartate Amino Transf (AST/SGOT) 17 IU/L 5-34 07/22/2017 5:55am 2017 6:54am Alanine Aminotransferase (ALT/SGPT) 25 IU/L 0-55 07/22/2017 5:55am 6:54am Total Protein 5.3 g/dL L 6.5-8.1 07/22/2017 5:55am 07/22/2017 6:54am Albumin 2.7 g/dL L 3.5-5.0 07/22/2017 5:55am 07/22/2017 6:54am Globulin 2.6 g/dL 2.3-3.5 07/22/2017 5:55am 07/22/2017 6:54am Albumin/Globulin Ratio 1.0 0.8-2.0 07/22/2017 5:55am 07/22/2017 6: 54am Alkaline Phosphatase 103 IU/L 40-150 07/22/2017 5:55am 07/22/2017 6: 54am B-Type Natriuretic Peptide > 5000.0 pg/mL H 0-100 07/17/2017 12:15pm 1:40pm Creatine Kinase 38 IU/L 29-168 07/18/2017 2:15pm 07/18/2017 2:41pm Creatine Kinase MB 1.70 ng/mL 0-5.0 07/18/2017 2:15pm 07/18/2017 2: 50pm Troponin I 0.54 ng/mL 0.0-0.78 07/18/2017 2:15pm 07/18/2017 2:50pm Elevated result called to GERSON at 1449 on 07/18/17 by Mery Younger. Arterial Blood pH 7.51 H 7.31-7.41 07/18/2017 2:44pm 07/18/2017 3: 10pm Arterial Blood Partial Pressure CO2 25 mmHg L 41-51 07/18/2017 2:44pm 3:10pm Arterial Blood Partial Pressure O2 96 mmHg 80-105 07/18/2017 2:44pm 3:10pm Arterial Blood HCO3 20 mmol/L L 23-28 07/18/2017 2:44pm 07/18/2017 3: 10pm Arterial Blood Base Excess -3.0 mmol/L L -2 - 3 07/18/2017 2:44pm 2017 3:10pm Arterial Blood Oxygen Saturation 98.0 % 95-98 07/18/2017 2:44pm 2017 3:10pm Hepatitis B Surface Antigen Negative Negative 07/17/2017 8:30pm 07/20 6:50am Performed at: [facility] [id number] Roll Tube Setter: Saurav Hill MD, Phone: [phone] Microbiology Results Procedure Source Organism/Result Collection Date/Time Result Date/Time Result Status Blood Culture Blood NO GROWTH AFTER 5 DAYS, FINAL REPORT 07/17/2017 12: 15pm 07/22/2017 12:39pm Final Procedures Procedure Status Date Provider(s) Computed tomography of chest with contrast Active 07/17/17 ZOË PARKER MD Ultrasound guidance for vascular access Active 07/18/17 LUIS VALE MD Encounters Encounter Location Arrival/Admit Date Discharge/Depart Date Attending Provider Discharged Inpatient [facility] 07/17/17 3:09pm 07/22/17 5:59pm CIELO DUFF MD
--- OUTSIDE RECORDS SUMMARY | 2017-08-27 23:35 | XMS REPORT ---
Author Author [facility] Address Unknown Phone Unavailable Care Team Providers Care Issue Clerk Name Role Phone CIELO DUFF Unavailable Unavailable Problems This patient has no known problems. Allergies, Adverse Reactions, Alerts This patient has no known allergies or adverse reactions. Medications This patient has no known medications. Results Test Description Test Time Test Comments Text Results Atomic Results Result Comments CHEST SINGLE (PORTABLE) [place] [address] Patient Name: MYA TOMLINSON MR #: [id number] : 1940 Age/Sex: 77/F Req #: [id number] Adm Physician: CIELO DUFF MD Ordered by: CIELO DUFF MD Report #: [id number] Location: ICU Room/Bed: ICU [facility] Procedure: [id number] DX/CHEST SINGLE (PORTABLE) Exam Date: 07/21/17 Exam Time: 0510 REPORT STATUS: Signed CHEST SINGLE (PORTABLE), 07/21/2017 5:00 AM Technique: CHEST SINGLE (PORTABLE) Comparison: 07/20/2017 Clinical history: Dyspnea, fluid overload Findings: See Impression Impression: 1. Lines/Tubes: Right IJ central venous catheter is stable in good position. Right-sided pacemaker is stable. 2. Worsening cardiogenic edema, compatible with edema. No pneumothorax Signed by: Dr. Biran Page M.D. on 07/21/2017 6:04 AM Dictated By: BRIAN JAY MD 3 Transcribed By: ANTONELLA on 07/21/17603 COPY TO: CIELO DUFF MD CHEST SINGLE (PORTABLE) [place] [address] Patient Name: MYA TOMLINSON MR #: [id number] : 1940 Age/Sex: 77/F Req #: [id number] Adm Physician: CIELO DUFF MD Ordered by: CIELO DUFF MD Report #: [id number] Location: ICU Room/Bed: [place] [address] Procedure: [id number] DX/CHEST SINGLE (PORTABLE) Exam Date: 07/20/17 Exam Time: 0530 REPORT STATUS: Signed CHEST SINGLE (PORTABLE), 07/20/2017 at 5:34 AM Technique: CHEST SINGLE (PORTABLE) Comparison: 07/19/2017 Clinical history: Dyspnea, fluid overload Findings: See Impression Impression: 1. Lines/Tubes: Right IJ central venous catheter is stable in good position. Right-sided pacemaker is stable. 2. Stable cardiomegaly with bilateral opacities, compatible with edema, atelectasis and pleural effusions. No pneumothorax. Signed by: Dr. Brian Page M.D. on 07/20/2017 6:26 AM Dictated By: BRIAN JAY MD 5 COPY TO: CIELO DUFF MD CHEST SINGLE (PORTABLE) [place] [address] Patient Name: MYA TOMLINSON MR #: [id number] : 1940 Age/Sex: 77/F Req #: [id number] Adm Physician: CIELO DUFF MD Ordered by: CIELO DUFF MD Report #: [id number] Location: ICU Room/Bed: ICU [facility] Procedure: [id number] DX/CHEST SINGLE (PORTABLE) Exam Date: 07/19/17 Exam Time: 609 REPORT STATUS: Signed CHEST SINGLE (PORTABLE), 07/19/2017 5:00 AM Technique: CHEST SINGLE (PORTABLE) Comparison: 07/18/2017 Clinical history: Dyspnea, fluid overload Findings: See Impression Impression: 1. Lines/Tubes: Status post right central venous catheter seen as far as the cavoatrial junction and right pacer. 2. Stable cardiomegaly with bilateral opacities, favor edema, atelectasis and pleural effusions. No pneumothorax. Signed by: Dr Loren Niño MD on 07/19/2017 6:28 AM Dictated By: LOREN NIÑO MD 7 Transcribed By: ANTONELLA on 07/19/17627 COPY TO: CIELO DUFF MD CHEST SINGLE (PORTABLE) [place] [address] Patient Name: MYA TOMLINSON MR #: [id number] : 1940 Age/Sex: 77/F Req #: [id number] Adm Physician: CIELO DUFF MD Ordered by: RAMBO HOLGUIN MD Report #: [id number] Location: ICU Room/Bed: ICU 193 ___ Procedure: [id number] DX/CHEST SINGLE (PORTABLE) Exam Date: 07/18/17 Exam Time: 1839 REPORT STATUS: Signed CHEST SINGLE (PORTABLE), 07/18/2017 6:37 PM Technique: CHEST SINGLE ( PORTABLE) Comparison: 07/18/2017 Clinical history: Central line placement Findings: See Impression Impression: 1. Lines/Tubes: Status post right central venous catheter placement seen as far as the distal SVC, tip obscured by right pacer and overlying leads. 2. Stable cardiomegaly with bilateral opacities, favor edema, atelectasis and pleural effusions. No pneumothorax. Signed by: Dr Loren Niño MD on 07/18/2017 7:16 PM Dictated By: LOREN NIÑO MD 15 Transcribed By: ANTONELLA on 07/18/171915 COPY TO: RAMBO HOLGUIN MD IR CONSULT [place] [address] Patient Name: MYA TOMLINSON MR #: [id number] : 1940 Age/Sex: 77/F Req #: [id number] Adm Physician: CIELO DUFF MD Ordered by: LUIS VALE MD Report #: [id number] Location: ICU Room/Bed: ICU 193 _ Procedure: [id number] DX/IR CONSULT Exam Date: Exam Time: REPORT STATUS: Signed Procedure: Temporary central venous catheter placement. Indication: Need for short-term central venous access. Comparison: None. Discussion: The procedure is performed at the bedside in the intensive care unit. Focused evaluation demonstrated the right chest cardiac device and a left upper extremity hemodialysis fistula. A focused sonographic evaluation of the neck demonstrated a patent and compressible right internal jugular vein. The right neck was prepped and draped in the usual sterile fashion. Utilizing ultrasound guidance, a 21- gauge needle was inserted into the right internal jugular vein. A 0.018 inch wire was advanced centrally. An access sheath was placed over the wire to secure the access. The wire was up sized to a 0.035 inch wire. A 0.035 inch wire was advanced into the inferior vena cava for stability. A single dilation was performed over the wire. A temporary central venous catheter was advanced over the wire. The wire was removed. The 3 ports demonstrated proper function with aspiration and flush. The lumens were flushed with sterile saline. The lumens were infused with heparin solution. The catheter was secured to the skin with 3-0 Ethilon suture. A sterile dressing was applied. There were no complications and the patient tolerated the procedure well. The patient remained in the ICU in stable unchanged condition for further monitoring. Impression: Successful placement of right internal jugular temporary central venous catheter utilizing ultrasound guidance. Signed by: Dr. Rambo Holguin M.D. on 07/20/2017 12:50 PM Dictated By: RAMBO HOLGUIN MD 1250 COPY TO: LUIS VALE MD [facility] (PORTABLE) [place] [address] Patient Name: MYA TOMLINSON MR #: [id number] : 1940 Age/Sex: 77/F Req #: [id number] Adm Physician: CIELO DUFF MD Ordered by: ZOË PARKER MD Report #: [id number] Location: ICU Room/Bed: ICU [facility] Procedure: [id number] DX/CHEST SINGLE (PORTABLE) Exam Date: 07/18/17 Exam Time: 1444 REPORT STATUS: Signed EXAMINATION: CHEST SINGLE (PORTABLE) INDICATION: CHF. Pneumonia. COMPARISON: 07/17/2017. FINDINGS: AP view TUBES and LINES: Right chest wall cardiac pacer with lead tips overlying the right atrium and right ventricle, unchanged. LUNGS: Interval increase in bilateral pulmonary edema. PLEURA: Mild increase in bilateral pleural effusions. No pneumothorax. HEART AND MEDIASTINUM: Cardiac silhouette is moderately enlarged.. Aortic arch calcifications. BONES AND SOFT TISSUES: No acute osseous lesion. UPPER ABDOMEN: No free air under the diaphragm. IMPRESSION: Interval increase in bilateral pulmonary edema. Signed by: Dr. Avani Walker M.D. on 07/18/2017 3:12 PM Dictated By: KIKA WALKER MD, MD 11 Transcribed By: ANTONELLA on 07/18/171511 COPY TO: ZOË PARKER MD NON-TUNNELLED CVC CATH PLACGAT [place] [address] Patient Name: MYA TOMLINSON MR #: [id number] : 1940 Age/Sex: 77/F Req #: [id number] Adm Physician: CIELO DUFF MD Ordered by: LUIS VALE MD Report #: [id number] Location: ICU Room/Bed: ICU 193 __ Procedure: [id number] IR/NON-TUNNELLED CVC CATH PLACMNT Exam Date: 07/18/17 Exam Time: 1805 REPORT STATUS: Signed Procedure: Temporary central venous catheter placement. Indication: Need for short-term central venous access. Comparison: None. Discussion: The procedure is performed at the bedside in the intensive care unit. Focused evaluation demonstrated the right chest cardiac device and a left upper extremity hemodialysis fistula. A focused sonographic evaluation of the neck demonstrated a patent and compressible right internal jugular vein. The right neck was prepped and draped in the usual sterile fashion. Utilizing ultrasound guidance, a 21-gauge needle was inserted into the right internal jugular vein. A 0.018 inch wire was advanced centrally. An access sheath was placed over the wire to secure the access. The wire was up sized to a 0.035 inch wire. A 0.035 inch wire was advanced into the inferior vena cava for stability. A single dilation was performed over the wire. A temporary central venous catheter was advanced over the wire. The wire was removed. The 3 ports demonstrated proper function with aspiration and flush. The lumens were flushed with sterile saline. The lumens were infused with heparin solution. The catheter was secured to the skin with 3-0 Ethilon suture. A sterile dressing was applied. There were no complications and the patient tolerated the procedure well. The patient remained in the ICU in stable unchanged condition for further monitoring. Impression: Successful placement of right internal jugular temporary central venous catheter utilizing ultrasound guidance. Signed by: Dr. Rambo Holugin M.D. on 07/20/2017 12:50 PM Dictated By: RAMBO HOLGUIN MD 1250 Transcribed By: ANTONELLA on 07/20/17 1250 COPY TO: LUIS VALE MD US GUIDANCE FOR VASCULAR ACCES [facility] [address] [place] [address] Patient Name: MYA TOMLINSON MR #: [id number] : 1940 Age/Sex: 77/F Req #: [id number] Adm Physician: CIELO DUFF MD Ordered by: LUIS VALE MD Report #: [id number] Location: ICU Room/Bed: ICU 193 __ Procedure: [id number] US/US GUIDANCE FOR VASCULAR ACCES Exam Date: 07/18/17 Exam Time: 1805 REPORT STATUS: Signed Procedure: Temporary central venous catheter placement. Indication: Need for short-term central venous access. Comparison: None. Discussion: The procedure is performed at the bedside in the intensive care unit. Focused evaluation demonstrated the right chest cardiac device and a left upper extremity hemodialysis fistula. A focused sonographic evaluation of the neck demonstrated a patent and compressible right internal jugular vein. The right neck was prepped and draped in the usual sterile fashion. Utilizing ultrasound guidance, a 21-gauge needle was inserted into the right internal jugular vein. A 0.018 inch wire was advanced centrally. An access sheath was placed over the wire to secure the access. The wire was up sized to a 0.035 inch wire. A 0.035 inch wire was advanced into the inferior vena cava for stability. A single dilation was performed over the wire. A temporary central venous catheter was advanced over the wire. The wire was removed. The 3 ports demonstrated proper function with aspiration and flush. The lumens were flushed with sterile saline. The lumens were infused with heparin solution. The catheter was secured to the skin with 3-0 Ethilon suture. A sterile dressing was applied. There were no complications and the patient tolerated the procedure well. The patient remained in the ICU in stable unchanged condition for further monitoring. Impression: Successful placement of right internal jugular temporary central venous catheter utilizing ultrasound guidance. Signed by: Dr. Rambo Holguin M.D. on 07/20/2017 12:50 PM Dictated By: RAMBO HOLGUIN MD 125 Transcribed By: ANTONELLA on 07/20/17 1250 COPY TO: LUIS VALE MD CT CHEST W [place] [address] Patient Name: MYA TOMLINSON MR #: [id number] : 1940 Age/Sex: 77/F Req #: [id number] Adm Physician: CIELO DUFF MD Ordered by: ZOË PARKER MD Report #: [id number] Location: [facility] Room/Bed: [place] [address] Procedure: [id number] CT/CT CHEST W Exam Date: Exam Time: REPORT STATUS: Signed EXAM: CT Chest WITH contrast 1:32 PM INDICATION: COMPARISON: Chest radiograph 2017 TECHNIQUE: Chest was scanned utilizing a multidetector helical scanner from the lung apex through the level of the adrenal glands without administration of IV contrast. Coronal and sagittal reformations were obtained. PE protocol was performed. IV CONTRAST: 100mL of Isovue-370 COMPLICATIONS: None RADIATION DOSE: Total DLP: 515.5 mGy*cm Estimated effective dose: (DLP x 0.014 x size factor) mSv CTDIvol has been reviewed. It is below the limits set by the Radiation Protocol Committee (RPC). FINDINGS: LINES/ TUBES: Right chest wall cardiac pacer with leads in the right atrium and right ventricle. LUNGS AND AIRWAYS: Smooth interlobular septal thickening and dependent groundglass opacities in keeping with pulmonary edema. Scattered atelectasis, more prominent in the right middle lobe and both lower lobes. Airways are normal. PLEURA: Moderate right and small left pleural effusions. No pneumothorax. HEART AND MEDIASTINUM: Right thyroid lobe 1.3 cm nodule. Limited evaluation of the right thyroid lobe secondary to metallic streak artifacts. No mediastinal, hilar or axillary lymphadenopathy. Heart is enlarged.. There is no pericardial effusion. Mitral annular calcifications. Three-vessel coronary artery calcifications and scattered aortic calcifications. No filling defects in the pulmonary arteries to the level of the subsegmental pulmonary arteries. Main pulmonary artery measures 2.6 cm in diameter. Ascending aorta measures 3.2 cm in diameter. UPPER ABDOMEN: Reflux of contrast into the hepatic veins suggestive of right heart dysfunction. Diffuse vascular calcifications. Otherwise, the limited views are grossly unremarkable. BONES: No acute or suspicious osseous lesions. SOFT TISSUES: Unremarkable. IMPRESSION: 1. Interstitial edema with moderate right and small left pleural effusions. 2. No pulmonary embolus to the level of the subsegmental pulmonary arteries. Signed by: DR. Talon Givens MD on 07/17/2017 3:57 PM Dictated By: TALON GIVENS MD 56 Transcribed By: ANTONELLA on 1556 COPY TO: ZOË PARKER MD CHEST SINGLE (PORTABLE) [place] [address] Patient Name: MYA TOMLINSON MR #: [id number] : 1940 Age/Sex: 77/F Req #: [id number] Adm Physician: Ordered by: MARCI THAO NP Report #: [id number] Location: ER Room/Bed: Procedure: [id number] DX/CHEST SINGLE (PORTABLE) Exam Date: 07/17/17 Exam Time: 1235 REPORT STATUS: Signed EXAMINATION: CHEST SINGLE (PORTABLE) INDICATION: COMPARISON: None FINDINGS: AP view TUBES and LINES: Right chest wall cardiac pacer with lead tips overlying the right atrium and right ventricle. LUNGS: Lungs are moderately inflated. Hilar fullness with bilateral interstitial opacities. Right basilar airspace opacity which is partially obscured by the cardiac pacer. PLEURA: Trace bilateral pleural effusions. No pneumothorax. HEART AND MEDIASTINUM: Cardiac silhouette is partially obscured but likely enlarged. Aortic arch calcifications. BONES AND SOFT TISSUES: No acute osseous lesion. Soft tissues are unremarkable. UPPER ABDOMEN: No free air under the diaphragm. IMPRESSION: 1. Interstitial pulmonary edema with trace bilateral pleural effusions. 2. Right basilar airspace opacity may represent atelectasis, edema , or developing consolidation. Signed by: DR. Talon Givens MD on 07/17/2017 12:59 PM Dictated By: TALON GIVENS MD 1256 Transcribed By: ANTONELLA on 07/17/17 1259 COPY TO: MARCI THAO NP
--- NOTE | 2017-08-28 00:31 | Diagnostic Imaging Report ---
EXAMINATION: Head CT without contrast. HISTORY:Fall, altered mental status. COMPARISON:None. TECHNIQUE: Multidetector axial images were obtained from the foramen magnum to the vertex without contrast. The images were reconstructed using brain and bone algorithms. Thin section brain images were reformatted into coronal and sagittal planes. Intravenous contrast: None IMAGE QUALITY: Acceptable. FINDINGS: Skull/scalp: Incidental 3 cm right occipital scalp lipoma. Multifocal atherosclerotic calcification of peripheral scalp vessels. Parenchyma: Nonspecific few, scattered supratentorial white matter hypodensity are likely related to small vessel ischemic changes. Dystrophic calcification in right lingual gyrus of the occipital lobe may represent a sequel of prior infection/inflammation or trauma. No acute hemorrhage, mass or acute major vascular territorial infarct. Arteries: Atherosclerotic calcification in bilateral carotid siphon and V4 segment of the vertebral arteries. Dural sinuses: No abnormal density suggestive of thrombosis. Ventricles: No hydrocephalus or displacement. Extra-axial spaces: No abnormal density. Brain volume: Generalized age-related cerebral volume loss. Craniocervical junction: No mass, Chiari malformation, or basilar invagination. Sella: No mass. Paranasal/mastoid sinuses: Imaged portions unremarkable. IMPRESSION: No acute intracranial abnormality. Mild supratentorial white matter microvascular ischemic changes and generalized age-related cerebral volume loss. Dystrophic calcification in right occipital lobe, possibly a sequel of prior infection/inflammation or trauma. Signed by: Dr. Lidia Lema M.D. on 08/28/2017 12:27 AM
--- NOTE | 2017-08-28 00:36 | Diagnostic Imaging Report ---
History: Fall. Comparison studies: None Technique: Axial images were obtained through the cervical region.. Coronal and sagittal images reconstructed from the axial data.. Intravenous contrast: None Findings: Fractures: None. Soft tissue injuries: None. Atlantoaxial articulation: Intact. Alignment: Loss of normal cervical lordosis is either positional or due to muscle spasm.. No scoliosis. Cervicomedullary junction: No abnormalities. The foramen magnum is patent. Soft tissues: 1.1 cm hypodense nodule in the right lobe of the thyroid gland. Atherosclerotic calcification in bilateral carotid bulb. Vertebrae: No fractures, infection or neoplasm. Degenerative changes: C3-C4: Moderate right foraminal stenosis due to facet and uncovertebral arthrosis. C4-C5: Mild right foraminal stenosis due to facet arthrosis. C5-C6: Moderate degenerative disc disease. Posterior disc osteophyte complex without canal stenosis. Moderate left foraminal stenosis due to facet and uncovertebral arthrosis. C6-C7: Mild right foraminal stenosis due to facet arthrosis.. IMPRESSION: 1. No acute cervical spine fracture. Loss of normal cervical lordosis is either positional or due to muscle spasm. 2. Ligament, spinal cord and or vascular abnormalities cannot be excluded on the basis of this examination. 3. Cervical spondylosis as detailed above. 4. Incidental hypodense nodule in right lobe of the thyroid gland, can be followed up with nonemergent dedicated thyroid ultrasonogram, if previous workup has not been done. Signed by: Dr. Lidia Lema M.D. on 08/28/2017 12:32 AM
[2017-08-28 00:57] VITALS: BP 122/59
== END 2017-08-28 01:57 | disposition home or self-care (01) ==
LOC: ER 23:32
DX: Z04.3 Encounter for examination and observation following other accident (principal); W01.0XXA Fall on same level from slipping, tripping and stumbling without subsequent striking against object, initial encounter; Y92.128 Other place in nursing home as the place of occurrence of the external cause; I12.0 Hypertensive chronic kidney disease with stage 5 chronic kidney disease or end stage renal disease; N18.6 End stage renal disease; Z99.2 Dependence on renal dialysis
CPT/HCPCS: 70450; 72125; 99284

== ENCOUNTER 2017-08-30 06:08 | Inpatient (IN) | payer MEDICARE ==
[~2017-08-30] VITALS: Ht 160 cm; Wt 64.9 kg
--- OUTSIDE RECORDS SUMMARY | 2017-08-30 06:10 | XMS REPORT | Continuity of Care Document ---
Author Author [facility] Organization 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 No 07/17/17 7:28pm If yes, is advance directive on file with [facility]? No 07/17/17 7:28pm If not on file with [facility] will patient provide a copy? No 07/17/17 7:28pm Do you have a Directive to Physician? No 08/27/17 11:43pm Do you have a Medical Power of Military Education Coordinator? No 08/27/17 11:43pm Do you have an out of hospital Do Not Resuscitate Order? No 08/27/17 11:43pm Do you have any special needs we should be aware of? No 08/27/17 11:43pm Do you have a support person here with you today? No 08/27/17 11:43pm Did patient receive Notice of Privacy Practices? Yes 08/27/17 11:43pm Did patient receive patient rights and responsibilities? Yes 08/27/17 11:43pm Problems No problem information available. Medications Current [...] No 07/17/2017 7:28pm Not Applicable Not Applicable Hospital Discharge Instructions No hospital discharge instruction information available. Plan of Care Discharge Date 08/28/17 1:57am Disposition HOME, SELF-CARE Condition at Discharge Stable Instructions/Education Provided Fall Prevention Forms Provided Work/School Excuse Prescriptions See Medication Section Referrals CIELO DUFF MD Order Date: Call for an appointment Address: [address] [place] [id number] Additional Instructions/Education dc home follow up with pcp return to the er with any emergent conditions Functional Status No functional status information available. Allergies, Adverse Reactions, Alerts Allergen Type Severity Reaction Status Last Updated Sulfa (Sulfonamide Antibiotics) Allergy Unknown Active 07/17/17 Labetalol Allergy Unknown FACIAL SWELLING, BLISTERS Active 07/17/17 Immunizations No immunization information available. Vital Signs Acute Vital Signs Vital Response Date/Time Temperature (Fahrenheit) 96.0 degrees F (97.6 - 99.5) 07/22/2017 3:48pm Pulse Pulse Rate (adult) 61 bpm (60 - 90) 08/28/2017 12:57am Respiratory Rate 18 bpm (12 - 24) 08/28/2017 12:57am Blood Pressure 122/59 mm Hg 08/28/2017 12:57am Height 5 ft 3 in 08/27/2017 11:35pm Weight 164 lb 08/27/2017 11:35pm Body Mass Index 29.1 kg/m^2 08/27/2017 11:35pm Results Laboratory Results Test Name Result Units [...] (%) (Auto) 12.5 % L 18.0-39.1 07/22/2017 5:55am 07/22/2017 6 :17am Monocytes (%) (Auto) 7.5 % 4.4-11.3 07/22/2017 5:55am 07/22/2017 6: 17am Eosinophils (%) (Auto) 2.6 % 0.0-6.0 07/22/2017 5:55am 07/22/2017 6: 17am Basophils (%) (Auto) 0.7 % 0.0-1.0 07/22/2017 5:5507/22/2017 6:17am IM GRANULOCYTES % 0.5 % 0.0-1.0 07/22/2017 5:5507/22/2017 6:17am Neutrophils # (Auto) 6.7 2.1-6.9 07/22/2017 5:5507/22/2017 6:17am Lymphocytes # (Auto) 1.1 1.0-3.2 07/22/2017 5:5507/22/2017 6:17am Monocytes # (Auto) 0.7 0.2-0.8 07/22/2017 5:55am 07/22/2017 6:17am Eosinophils # (Auto) 0.2 0.0-0.4 07/22/2017 5:55am 07/22/2017 6:17am Basophils # (Auto) 0.1 0.0-0.1 07/22/2017 5:5507/22/2017 6:17am Absolute Immature Granulocyte (auto 0.04 x10e3/uL [...] CLEAR 07/17/2017 2:45pm 07/17/2017 3:46pm Urine Specific [place] 1.010 1.010-1.025 07/17/2017 2:45pm 2017 3:46pm Urine [...] 6: 54am Anion Gap 17.5 mmol/L H 8-07/22/2017 5:55am 07/22/2017 6:54am Blood Urea Nitrogen 42 mg/dL H 7-07/22/2017 5:55am 07/22/2017 6:54am Creatinine 5.15 mg/dL H 0.57-1.11 07/22/2017 5:55am 07/22/2017 6:54am BUN/Creatinine Ratio 8 607/22/2017 5:55am 07/22/2017 6:54am Estimat Glomerular Filtration Rate [...] 70-120 07/22/2017 3:20pm 07/22/2017 3:43pm Meter ID: [id number] Lactic Acid Level 25.1 MG/DL H 4.5-19.8 07/17/2017 5:10pm 07/17/2017 5: 37pm Phosphorus Level 5.4 MG/DL H 2.3-4.7 07/19/2017 5:05am 07/19/2017 7: 04am Magnesium Level 1.7 MG/DL 1.3-2.1 07/19/2017 5:05am 07/19/2017 7:04am Iron Level 43 ug/dL L 50-170 07/20/2017 5:10a07/20/2017 12:26pm Total Iron Binding Capacity 216 ug/dL L 261-478 07/20/2017 5:10a2017 12:26pm Percent Iron Saturation 20 % 15-50 07/20/2017 5:10a07/20/2017 12: 26pm Transferrin 154 mg/dL L 180-382 07/20/2017 5:10a07/20/2017 12:26pm Ferritin 650.69 ng/mL H 4.63-204.00 07/20/2017 5:10a07/20/2017 12: 44pm Total Bilirubin 0.4 mg/dL 0.2-1.2 [...] Negative 07/17/2017 8:30pm 07/20 6:50am Performed at: [address] [id number] Water System Operator: Saurav Hill MD, Phone: [phone] Microbiology Results Procedure Source Organism/Result Collection Date/Time Result Date/Time Result Status Blood Culture Blood NO GROWTH AFTER 5 DAYS, FINAL REPORT 07/17/2017 12: 15pm 07/22/2017 12:39pm Final Procedures Procedure Status Date Provider(s) INSERTION OF INFUSION DEV INTO SUP VENA CAVA, PERC APPROACH Completed RAMBO HOLGUIN MD TRANSFUSE NONAUT RED BLOOD CELLS IN PERIPH VEIN, PERC Completed 07/18/17 LUIS VALE MD ASSISTANCE WITH RESPIRATORY VENTILATION, <24 HRS, CPAP Completed 07/18/17 ZOË PARKER MD PERFORMANCE OF URINARY FILTRATION, <6 HRS/DAY Completed 07/17/17 LUIS VALE MD Computed tomography of chest with contrast Active 07/17/17 ZOË PARKER MD Ultrasound guidance for vascular access Active 07/18/17 LUIS VALE MD Computed tomography of brain without radiopaque contrast Active 08/27/17 KENNEDY ANGEL MD Computed tomography of cervical spine without contrast Active 08/27/17 KENNEDY ANGEL MD Encounters Encounter Location Arrival/Admit Date Discharge/Depart Date Attending Provider Departed Emergency Room [facility] 08/27/17 11:32pm 08/28 1:57am KENNEDY ANGEL MD Discharged Inpatient [facility] 07/17/17 3:09pm 07/22/17 5:59pm CIELO DUFF MD
[2017-08-30] MEDS ORDERED: PANTOPRAZOLE 40 MG 10ML VIAL IV STA (06:24)
[2017-08-30] MEDS ORDERED: SODIUM CHLORIDE 0.9% 500ML 500 ML IV ONE (06:30)
[2017-08-30 06:40] LABS: BASOPHILS % 0.2 % (0.0-1.0); EOSINOPHILS % 0.1 % (0.0-6.0); HEMATOCRIT 32.9 % (34.2-44.1); HEMOGLOBIN 10.9 g/dL (12.0-16.0); LYMPHOCYTES # (AUTO) 1.9 (1.0-3.2); LYMPHOCYTES % 10.5 % (18.0-39.1); MEAN CORPUSCULAR HEMOGLOBIN 31.6 pg (28-32); MEAN CORPUSCULAR HGB CONC 33.1 g/dL (31-35); MEAN CORPUSCULAR VOLUME 95.4 fL (81-99); MONOCYTES # (AUTO) 1.1 (0.2-0.8); MONOCYTES % 6.5 % (4.4-11.3); NEUTROPHILS # (AUTO) 14.5 (2.1-6.9); NEUTROPHILS % 82.1 % (38.7-80.0); PLATELET COUNT 433 x10e3/uL (140-360); RED BLOOD COUNT 3.45 x10e6/uL (3.6-5.1); RED CELL DISTRIBUTION WIDTH 18.2 % (11.7-14.4)
[2017-08-30 07:10] LABS: INR 3.88; PROTHROMBIN TIME 35.8 seconds (11.9-14.5)
[2017-08-30 07:11] LABS: PARTIAL THROMBOPLASTIN TIME 58.8 seconds (23.8-35.5)
[2017-08-30 07:22] LABS: ANION GAP 23.9 mmol/L (8-16); CALCIUM 10.3 mg/dL (8.4-10.2); CREATININE, SERUM 8.1 mg/dL (0.57-1.11); MAGNESIUM 1.8 MG/DL (1.3-2.1)
[2017-08-30 07:23] LABS: B-TYPE NATRIURETIC PEPTIDE2 3577.5 pg/mL (0-100)
[2017-08-30 07:26] LABS: POTASSIUM 5.9 mmol/L (3.5-5.1)
--- NOTE | 2017-08-30 07:26 | Diagnostic Imaging Report ---
Exam: Head CT without contrast History: Altered mental status Comparison studies: Head CT 08/27/2017 Technique: Axial images were obtained from the skull base to the vertex. Coronal and sagittal images reconstructed from the axial data. Intravenous contrast: None Findings: Scalp: No abnormalities. Bones: No fractures, blastic or lytic lesions. Brain sulci: Mildly prominent Ventricles: Mild compensatory dilatation. No hydrocephalus. Extra-axial spaces: No masses, no fluid collection. Parenchyma: No acute hemorrhage or acute cortical vascular insults. A few subtle hypodensities in the supratentorial white matter are nonspecific but most compatible with chronic small vessel ischemic changes. Unchanged 1.4 cm calcification within the lingual gyrus of the right occipital lobe without associated mass effect or surrounding edema, possibly sequela of previous nonspecific insult. Sellar/suprasellar region: No abnormalities. Craniocervical junction: Patent foramen magnum. No Chiari one malformation. Incidental findings: Vascular calcifications in the carotid siphons and intradural vertebral arteries as well as throughout the distal ECA branches which can be seen in patients with chronic renal disease. Bilateral lens replacements related to previous cataract surgery. IMPRESSION: No acute intracranial abnormalities. No changes from the previous head CT of 08/28/2017. Chronic findings: 1. Mild generalized volume loss. 2. Mild microvascular ischemic changes. 3. Nonspecific right occipital dystrophic calcification. Signed by: Dr. Ted Quiñonez M.D. on 08/30/2017 7:23 AM
--- NOTE | 2017-08-30 07:29 | Diagnostic Imaging Report ---
PROCEDURE:CHEST SINGLE (PORTABLE) TECHNIQUE:Portable AP chest INDICATION:Altered mental status; shortness of breath COMPARISON:[facility], DX, CHEST SINGLE (PORTABLE), 07/21/2017, 5:32. FINDINGS: Bilateral interstitial opacity, central vascular prominence and enlarged cardiac silhouette. No pleural effusions. 2-lead pacemaker over the right hemithorax; leads intact. Intact skeleton. CONCLUSION: Pulmonary edema suggesting congestive heart failure. Dictated by: Javier Cook M.D. on 08/30/2017 at 7:30 Electronically approved by: Javier Cook M.D. on 08/30/2017 at 7:30
[2017-08-30 07:31] LABS: CREATINE KINASE MB 4.3 ng/mL (0-5.0)
[2017-08-30 08:21] LABS: CLARITY,URINE CLOUDY (CLEAR); COLOR,URINE AMBER (YELLOW); LEUKOCYTE ESTERASE ,URINE NEGATIVE (NEGATIVE); NITRITE,URINE NEGATIVE (NEGATIVE); PROTEIN,URINE DIPSTICK 1+ (NEGATIVE)
[2017-08-30 08:22] LABS: ABG HCO3 21 mmol/L (23-28); ABG PCO2 21 mmHg (41-51); ABG PH 7.59 (7.31-7.41); ABG PO2 81 mmHg (80-105)
[2017-08-30 08:22] LABS: BILIRUBIN,URINE NEGATIVE (NEGATIVE); KETONES,URINE NEGATIVE (NEGATIVE); URINE UROBILINOGEN 0.2 mg/dL (0.2 - 1)
[2017-08-30 08:50] LABS: AMORPHOUS SEDIMENT,URINE RARE (FEW); BACTERIA,URINE RARE /HPF; EPITHELIAL CELLS,URINE FEW /LPF; MUCUS,URINE RARE (RARE); RENAL EPITHELIAL CELLS,URINE FEW; TRANSITIONAL EPI CELLS,URINE RARE; WBC,URINE (MAN) 0-5 /HPF (0-5)
[2017-08-30 10:02] LABS: BASOPHILS % 0.2 % (0.0-1.0); EOSINOPHILS % 0.1 % (0.0-6.0); HEMATOCRIT 30.4 % (34.2-44.1); HEMOGLOBIN 9.9 g/dL (12.0-16.0); LYMPHOCYTES # (AUTO) 1.1 (1.0-3.2); LYMPHOCYTES % 6.9 % (18.0-39.1); MEAN CORPUSCULAR HEMOGLOBIN 31.6 pg (28-32); MEAN CORPUSCULAR HGB CONC 32.6 g/dL (31-35); MEAN CORPUSCULAR VOLUME 97.1 fL (81-99); MONOCYTES # (AUTO) 1.1 (0.2-0.8); MONOCYTES % 6.7 % (4.4-11.3); NEUTROPHILS # (AUTO) 13.7 (2.1-6.9); NEUTROPHILS % 85.5 % (38.7-80.0); PLATELET COUNT 345 x10e3/uL (140-360); RED BLOOD COUNT 3.13 x10e6/uL (3.6-5.1); RED CELL DISTRIBUTION WIDTH 18.2 % (11.7-14.4)
[2017-08-30 10:22] LABS: ABG HCO3 23 mmol/L (23-28); ABG PCO2 37 mmHg (41-51); ABG PO2 106 mmHg (80-105)
[2017-08-30 10:32] LABS: ALBUMIN 2.9 g/dL (3.5-5.0); ANION GAP 20.5 mmol/L (8-16); CALCIUM 10.1 mg/dL (8.4-10.2); CREATININE, SERUM 8.11 mg/dL (0.57-1.11); POTASSIUM 5.5 mmol/L (3.5-5.1)
[2017-08-30] MEDS ORDERED: VANCOMYCIN 1GM/NS 250 ML 250 ML IV ONE (10:45)
[2017-08-30] MEDS ORDERED: PIPERACILLIN/TAZO 2.25 GM 50 ML IV ONE (10:45)
[2017-08-30] MEDS ORDERED: ONDANSETRON HCL INJ 2 MG/ML VIAL IV PRN (11:00)
[2017-08-30] MEDS ORDERED: SODIUM CHLORIDE FLUSH 10 ML SYR INJ PRN (11:00)
[2017-08-30] MEDS ORDERED: SODIUM CHLORIDE 0.9% 1000ML 2,000 ML ONE (13:38)
--- NOTE | 2017-08-30 15:07 | Consultation ---
DATE OF CONSULTATION: August 30, 2017 RENAL CONSULTATION Thank you for the consult. HISTORY OF PRESENT ILLNESS: Ms. Loza is a pleasant 77-year-old female, a patient of ours with end-stage renal disease on hemodialysis Wednesday/Wednesday/Wednesday at [facility] dialysis facility under our care. Patient usually does dialysis third check Wednesday/Wednesday/Wednesday. On Wednesday the nurse called me, stating that the patient was not able to complete her full treatment and patient was asked to come on Wednesday; however, apparently did not come for treatment on Wednesday. Patient also remains fluid-overloaded, often has cramps in her legs and complains of not wanting to stay for the full treatments. Patient tends to get fluid-overloaded since she has cardiomyopathy also. She came into the [facility] ER today with shortness of breath. Today is her day for dialysis. Renal consultation has been asked for to provide her dialysis while she is here. Her potassium was slightly elevated at 5.5. Currently no chest pain, no abdominal pain, no fever, no chills, no diarrhea, no vomiting, no other symptoms. PAST MEDICAL HISTORY: End-stage renal disease, hypertension, diabetes mellitus, congestive heart failure. MEDICATIONS AT HOME: Carvedilol, Plavix, furosemide, insulin, nifedipine XL, sevelamer. ALLERGIES: TO SULFA DRUGS AND LABETALOL. SOCIAL HISTORY: No tobacco, no alcohol use. FAMILY HISTORY: Noncontributory. REVIEW OF SYSTEMS: See HPI. Otherwise all systems negative. PHYSICAL EXAMINATION VITAL SIGNS: The blood pressure is 111/63, heart rate 63, respirations 14. HEENT: No cervical lymphadenopathy. Neck supple without masses. No obvious JVD. Moist-appearing oral mucosa. SKIN: Appearing moist with good skin turgor. CHEST WALL: Good expansion. No chest wall tenderness. LUNGS: With bilateral rhonchi over the lung wells. CARDIOVASCULAR: S1 and S2. No obvious gallop, rub or murmur. ABDOMEN: Soft. Positive bowel sounds. Nontender. No organomegaly. EXTREMITIES: No evidence of lower extremity edema. No clubbing, no cyanosis. NEUROLOGICALLY: Awake, alert, oriented x3. Grossly nonfocal exam. LABS: White count 16, H\T\H 9.9 and 30.4, platelets of 345. Chemistries: Sodium 131, potassium is 5.5, chloride 92, bicarb of 24, BUN is 63, creatinine is 8.1. IMPRESSION/PLAN 1. End-stage renal disease. Continue dialysis today and then Wednesday/Wednesday/Wednesday, additional days as needed for ultrafiltration only. 2. Hypertension. Blood pressure is within normal range. Continue to monitor and keep off blood pressure lowering medications for now. 3. Hyperkalemia. Will dialyze on 1 k bath for 1 hour, and then 2 k bath for the rest should correct the hyperkalemia. 4. Fluid overload. Will ultrafiltrate about 4 to 5 liters with dialysis as tolerated by blood pressure. Thank you once again for the consultation. Will follow the patient closely with you and make further recommendations. LUIS VALE MD Job#: [id number] EV cc:JL DUFF MD
--- NOTE | 2017-08-30 18:06 | Consultation ---
DATE OF CONSULTATION: August 30, 2017 CARDIOLOGY CONSULTATION REQUESTING PHYSICIAN: Dr. Leo Ewing REASON FOR CONSULTATION: Congestive heart failure. HISTORY OF PRESENT ILLNESS: This is a 77-year-old woman with history of systolic and diastolic heart failure, multivessel coronary artery disease, recent ulr-VR-fcdnuedwy myocardial infarction, sinus arrest status post permanent pacemaker, hypertension, diabetes mellitus, and end-stage renal disease on hemodialysis, who presented with complaint of shortness of breath. The patient has had multiple admissions at both [facility] and [facility] recently. She had just been discharged from [facility] less than 1 week prior when she developed worsening shortness of breath last night. The patient denies chest pain, fever or chills. Per the EMR, the patient was unable to get her full dialysis session on Wednesday and did not come Wednesday for additional treatment. She now presents with worsening shortness of breath since last night. Nephrology has been consulted to dialyze the patient since today is her scheduled dialysis date. She is, otherwise, without complaints. REVIEW OF SYSTEMS: Negative, except as per HPI. PAST MEDICAL HISTORY 1. Chronic systolic and diastolic heart failure. 2. Multivessel coronary artery disease with recent epl-PW-deltkdiil myocardial infarction. 3. Hypertension. 4. Hyperlipidemia. 5. Sinus arrest, status post permanent pacemaker. 6. Diabetes mellitus. 7. End-stage renal disease on hemodialysis. PAST SURGICAL HISTORY 1. Fistula placement. 2. Bilateral cataract surgery. FAMILY HISTORY: Pertinent for congestive heart failure. SOCIAL HISTORY: No tobacco, alcohol, or drugs. ALLERGIES: PLEASE SEE EMR. MEDICATIONS: Please see medication list. PHYSICAL EXAMINATION VITAL SIGNS: Temperature 97.9 degrees, pulse 63, respiratory rate 17, blood pressure 109/54, oxygen saturation 98% on 3 L nasal cannula. GENERAL: Well-developed, well-nourished woman in no acute distress. HEENT: Normocephalic, atraumatic. Pupils are equal. No scleral icterus. NECK: Supple. No thyromegaly or cervical lymphadenopathy. No carotid bruit. LUNGS: Clear to auscultation bilaterally. No wheezes. She had crackles bilaterally. CARDIOVASCULAR: Normal rate, regular rhythm. No murmur. Normal S1 and S2. ABDOMEN: Soft. Nontender. EXTREMITIES: 1+ pitting edema. NEURO: Nonfocal exam. LABS: WBC 16, hemoglobin 9.9, hematocrit 30.4, platelets 345. Sodium 131, potassium 5.5, chloride 92, CO2 24, BUN 63, creatinine 8.11. Troponin 1.340. BNP 3578. EKG: Electronic atrial pacemaker, left axis deviation, septal infarct age undetermined, possible lateral infarct age undetermined. CHEST X-RAY: Pulmonary edema suggesting congestive heart failure. IMPRESSION 1. Szjgc-hd-ntgzskg systolic and diastolic heart failure. 2. End-stage renal disease on hemodialysis. 3. Volume overload secondary to above. 4. Multivessel coronary artery disease with recent fbh-LA-qdnyluhpe myocardial infarction. 5. Hypertension. 6. Hyperlipidemia. RECOMMENDATIONS 1. Volume management per nephrology given end-stage renal disease. 2. Continue home cardiac medications. 3. Elevated troponin is not consistent with myocardial infarction. Suspect this is secondary to poor clearance in the setting of end-stage renal disease as well as oeyar-sy-bgvihbj systolic and diastolic heart failure. We will continue to trend enzymes. 4. Given the patient's multivessel coronary artery disease, the patient was offered coronary artery bypass surgery. However, the patient declined due to the surgical risks. Continue conservative medical therapy. The patient was supposed to be discharged on Eliquis after her recent hospitalization at [facility]. We will clarify if the patient was taking this medication. Otherwise, continue home cardiac medications without changes. Thank you for this consult. We will continue to follow. Job#: [id number] YUDY
[2017-08-30 23:45] VITALS: BP 123/60
[2017-08-31] VITALS (7 sets, daily range): BP systolic 104–128; BP diastolic 54–64
--- NOTE | 2017-08-31 06:29 | Diagnostic Imaging Report ---
EXAMINATION: CHEST SINGLE (PORTABLE) INDICATION: Shortness of breath COMPARISON: 08/30/2017 FINDINGS: TUBES and LINES: The pacemaker is intact. LUNGS: Lungs are not well inflated. Worsening central vascular congestion There is increased in perihilar interstitial opacities, consistent with interstitial edema. PLEURA: No pleural effusion or pneumothorax. HEART AND MEDIASTINUM: Cardiac size is moderately enlarged. There are atherosclerotic calcifications within the aorta. BONES AND SOFT TISSUES: No acute osseous lesion. Soft tissues are unremarkable. UPPER ABDOMEN: No free air under the diaphragm. IMPRESSION: Findings consistent with worsening cardiogenic pulmonary edema Signed by: Dr. Brian Page M.D. on 08/31/2017 6:25 AM
[2017-08-31 07:31] LABS: ALBUMIN 2.9 g/dL (3.5-5.0); ALBUMIN/GLOBULIN RATIO 0.8 (0.8-2.0); ANION GAP 20.7 mmol/L (8-16); CALCIUM 11.2 mg/dL (8.4-10.2); CHOL/HDL RATIO 3.1 (3.0-3.6); CREATININE, SERUM 4.69 mg/dL (0.57-1.11); MAGNESIUM 1.9 MG/DL (1.3-2.1); PHOSPHORUS 7.9 MG/DL (2.3-4.7); POTASSIUM 4.7 mmol/L (3.5-5.1)
[2017-08-31] MEDS: SEVELAMER CARBONATE 800 MG TAB PO SCH ×3 (08:00→17:00)
--- NOTE | 2017-08-31 08:23 | Progress Note ---
DATE: August 30, 2017 RENAL PROGRESS NOTE SUBJECTIVE: Followup for end-stage renal disease. Tolerated dialysis yesterday and tolerating dialysis on Wednesday, Wednesday and Wednesday. However, chest x-ray still showed some degree of fluid overload. Patient does tend to get fluid overloaded, and likely will require a short treatment today for ultrafiltration only. No nausea. No vomiting. Does have some shortness of breath still, but it has improved. OBJECTIVE VITAL SIGNS: Have been noted and are stable. Blood pressure 104/54, heart rate 84, respirations 16, and afebrile. LUNGS: Rales at the bases bilaterally. CARDIOVASCULAR: S1 and S2. No rub. ABDOMEN: Soft and nontender. Positive bowel sounds. EXTREMITIES: No edema. LABS: Have been reviewed. Potassium is 4.7, BUN 26, creatinine 4.69, sodium 140, phosphorus 7.9. Calcium, unclear why, but is high at 11.2. IMPRESSION AND PLAN 1. End-stage renal disease: Will continue dialysis on Wednesday, Wednesday and Wednesday, and additional days as needed for ultrafiltration only for volume removal. 2. Hypertension: Would leave off all blood pressure lowering medications since the blood pressure does not run very high. 3. Hyperphosphatemia: Will start on Renvela 1600 mg p.o. 3 times a day. 4. Hypercalcemia: Unclear why it is elevated. Calcium yesterday was actually normal at 10.1. Will recheck again tomorrow. If still elevated, would dialyze on a lower calcium bath. Will also check an intact PTH level. Job#: [id number] RUBÉN
[2017-08-31] MEDS: ASPIRIN 81 MG ENTERIC COATED PO SCH ×2 (09:00→11:18)
[2017-08-31 09:01] LABS: BASOPHILS % 0.2 % (0.0-1.0); EOSINOPHILS % 0.1 % (0.0-6.0); HEMATOCRIT 37.3 % (34.2-44.1); LYMPHOCYTES # (AUTO) 0.9 (1.0-3.2); LYMPHOCYTES % 4.8 % (18.0-39.1); MEAN CORPUSCULAR HEMOGLOBIN 32.1 pg (28-32); MEAN CORPUSCULAR HGB CONC 31.4 g/dL (31-35); MEAN CORPUSCULAR VOLUME 102.5 fL (81-99); MONOCYTES # (AUTO) 1.2 (0.2-0.8); MONOCYTES % 6.3 % (4.4-11.3); NEUTROPHILS # (AUTO) 16.3 (2.1-6.9); NEUTROPHILS % 88.1 % (38.7-80.0); PLATELET COUNT 404 x10e3/uL (140-360); RED BLOOD COUNT 3.64 x10e6/uL (3.6-5.1); RED CELL DISTRIBUTION WIDTH 18.3 % (11.7-14.4)
[2017-08-31 09:06] LABS: HEMOGLOBIN 11.7 g/dL (12.0-16.0)
[2017-08-31] MEDS ORDERED: SODIUM CHLORIDE 0.9% 1000ML 1,000 ML IV PRN (12:30)
[2017-08-31] MEDS: APIXABAN 5 MG TABLET PO SCH (18:00)
--- NOTE | 2017-08-31 19:11 | Progress Note ---
DATE: August 31, 2017 SUBJECTIVE: The patient denies chest pain or shortness of breath. She was seen during dialysis. OBJECTIVE VITAL SIGNS: Temperature 97.4 degrees, pulse 85, respiratory rate 18, blood pressure 128/61, oxygen saturation 98% on 2 liters nasal cannula. GENERAL: Awake, alert and in no acute distress. LUNGS: Clear to auscultation bilaterally. No wheezes or crackles. CARDIOVASCULAR: Normal rate, regular rhythm. No murmur. Normal S1 and S2. ABDOMEN: Soft. Nontender. EXTREMITIES: 1+ pitting edema. CARDIAC MEDICATIONS: Aspirin 81 mg p.o. q.a.m. LABS: WBC 18.48, hemoglobin 11.7, hematocrit 37.3, platelets 404,000, sodium 140, potassium 4.7, chloride 98, CO2 of 26, BUN 26, creatinine 4.69. TELEMETRY: Normal sinus rhythm. IMPRESSION 1. Gdufm-mb-avcdagb systolic and diastolic heart failure. 2. End-stage renal disease on hemodialysis. 3. Volume overload secondary to above. 4. Multivessel coronary artery disease with recent glh-MG-eqclwzpsd myocardial infarction. 5. Hypertension. 6. Hyperlipidemia. RECOMMENDATIONS: Volume management per nephrology given end-stage renal disease. Continue home cardiac medications. The patient's troponin elevation was not consistent with myocardial infarction, likely secondary to axjpc-qv-cssrkms systolic and diastolic heart failure in the setting of end-stage renal disease. The patient declined coronary artery bypass surgery due to the surgical risk. Continue conservative medical therapy. Resume anticoagulation. Thank you for this consult. We will continue to follow. Job#: [id number]
[2017-08-31] MEDS: CARVEDILOL 12.5 MG TAB PO SCH (23:40)
[2017-09-01] VITALS (23 sets, daily range): BP systolic 85–130; BP diastolic 39–68
--- NOTE | 2017-09-01 00:03 | Progress Note ---
DATE: August 31, 2017 PULMONARY MEDICINE PROGRESS NOTE SUBJECTIVE: Ms. Loza was seen and examined at bedside. She continues to have a lot of weakness. She has Almeida in place. Almeida is via nasal cannula. She is alert, oriented times 3, but slow demeanor and affect. REVIEW OF SYSTEMS: No headaches, no bleeding. OBJECTIVE VITAL SIGNS: Afebrile, vital signs noted per electronic record. GENERAL: In no acute distress, alert and calm. HEENT: Normocephalic, atraumatic. NECK: Supple. Throat midline. LUNGS: Bilateral air entry, few crackles. CARDIOVASCULAR: S1, S2. No murmurs, rubs or gallops. ABDOMEN: Soft, nontender. EXTREMITIES: No clubbing, no cyanosis, there is still 1+ edema. INTEGUMENT: No rash, no purpura. LABS: 18-24 white count, 37 hematocrit, 24 platelets. Potassium 4.7, creatinine 4.6. Albumin is 2.9. IMPRESSIONS AND PLAN 1. 2. Chronic atrial fibrillation. 3. Chronic systolic cardiomyopathy with acute exacerbation. 4. Weakness. Continue current treatment at this time. Patient will have blood thinner continued. Continue aspirin. Hemodialysis for negative fluid balance. Will follow along closely. Patient overall has a lot of rehab that she needs to engage in. Job#: [id number] CQ
[2017-09-01 07:03] LABS: BASOPHILS % 0.2 % (0.0-1.0); EOSINOPHILS # (AUTO) 0.1 (0.0-0.4); EOSINOPHILS % 0.3 % (0.0-6.0); HEMATOCRIT 35.4 % (34.2-44.1); HEMOGLOBIN 11.5 g/dL (12.0-16.0); LYMPHOCYTES # (AUTO) 1.3 (1.0-3.2); LYMPHOCYTES % 6.9 % (18.0-39.1); MEAN CORPUSCULAR HEMOGLOBIN 31.9 pg (28-32); MEAN CORPUSCULAR HGB CONC 32.5 g/dL (31-35); MEAN CORPUSCULAR VOLUME 98.3 fL (81-99); MONOCYTES # (AUTO) 1.3 (0.2-0.8); MONOCYTES % 7.2 % (4.4-11.3); NEUTROPHILS # (AUTO) 15.9 (2.1-6.9); PLATELET COUNT 376 x10e3/uL (140-360); RED CELL DISTRIBUTION WIDTH 17.5 % (11.7-14.4)
[2017-09-01 07:24] LABS: ANION GAP 18.6 mmol/L (8-16); CALCIUM 10.8 mg/dL (8.4-10.2); CREATININE, SERUM 6.43 mg/dL (0.57-1.11); PHOSPHORUS 7.1 MG/DL (2.3-4.7); POTASSIUM 4.6 mmol/L (3.5-5.1)
[2017-09-01] MEDS ORDERED: SEVELAMER CARBONATE 800 MG TAB PO SCH (08:00)
[2017-09-01] MEDS: SEVELAMER CARBONATE 800 MG TAB PO SCH ×3 (08:00→17:40)
[2017-09-01] MEDS ORDERED: MANNITOL 25% 12.5GM/50 ML VIAL IV PRN (08:15)
[2017-09-01] MEDS ORDERED: ALBUMIN HUMAN 50 ML IV PRN (08:15)
[2017-09-01] MEDS ORDERED: HEPARIN SOD (PORCINE) 1000 UNIT/ML SDV IV PRN (08:15)
[2017-09-01] MEDS: CARVEDILOL 12.5 MG TAB PO SCH (09:00)
[2017-09-01] MEDS ORDERED: ISOSORBIDE MONONITRATE 30 MG TAB CR PO SCH (09:00)
[2017-09-01] MEDS ORDERED: FUROSEMIDE 40 MG TAB PO SCH (09:00)
[2017-09-01] MEDS: APIXABAN 5 MG TABLET PO SCH ×2 (09:00→17:40)
[2017-09-01] MEDS ORDERED: APIXAB 2.5 MG TABLET PO SCH (09:00)
[2017-09-01] MEDS: NIACIN 500 MG TABSR PO SCH (09:00)
[2017-09-01] MEDS ORDERED: ACETAMINOPHEN 325 MG TAB PO PRN (10:00)
[2017-09-01] MEDS ORDERED: ASPIRIN 81 MG CHEW TAB PO ONE ×2 (11:15→11:30)
[2017-09-01] MEDS ORDERED: FENTANYL CITRATE/PF 100MCG/2 ML INJ IV ONE (11:15)
[2017-09-01] MEDS ORDERED: ERTAPENEM 1GM/NS 100ML 100 ML IV STA (11:23)
[2017-09-01] MEDS: ERTAPENEM 1GM/NS 100ML 100 ML IV SCH (11:30)
--- NOTE | 2017-09-01 11:41 | Progress Note ---
DATE: September 01, 2017 RENAL PROGRESS NOTE SUBJECTIVE: End-stage renal disease. Dialysis days are Wednesday, Wednesday and Wednesday. She had a short dialysis treatment yesterday for 2 hours with ultrafiltration only since she was still fluid overloaded. Today is her regular day for dialysis. The patient was started on dialysis; however, the blood pressure started to drop during the treatment. The patient's blood flow rates had been decreased. The patient passed out during the treatment. As soon as the patient's ultrafiltration was stopped and the patient was given a 500-mL bolus, the blood pressure picked up to 120s mmHg systolic BP, and the patient came back. The patient had not lost her pulse during this time period at all. Of note, I noticed the patient was started on carvedilol last night, and she was given a dose last night. The patient appears weak, but she is awake and responsive now. Dialysis treatment has been stopped. The patient had 2 hours of dialysis so far. PHYSICAL EXAMINATION VITALS: Blood pressure most current 120s over 60s. Pulse 66. Afebrile. LUNGS: Rales at the bases bilaterally. CARDIOVASCULAR: S1 and S2. No rub. ABDOMEN: Soft and nontender. EXTREMITIES: No edema. LABS: Have been reviewed from today. Potassium 4.6, sodium 136, BUN 49, creatinine 6.4, glucose 159. H and H are 11.5 and 35.4. White count 18.7 and platelets 376. IMPRESSION AND PLAN 1. End-stage renal disease: Will continue dialysis on Wednesday, Wednesday and Wednesday. Will not do further dialysis today since the patient became unstable on dialysis. Will reassess again on Wednesday. 2. Hypotension. The patient's blood pressures run low and, therefore, would not give the patient any eqxfv-rjxvyncv-icqnpszg medications. I will discontinue the carvedilol. The patient responded to IV fluid bolus and became more responsive. Recommend to observe her in ICU. 3. Anemia of chronic disease, stable. Will continue to monitor closely. Job#: [id number]
[2017-09-01 12:08] LABS: ABG HCO3 28 mmol/L (23-28); ABG PCO2 26 mmHg (41-51); ABG PH 7.65 (7.31-7.41); ABG PO2 437 mmHg (80-105)
[2017-09-01 12:13] LABS: CREATINE KINASE MB 5.6 ng/mL (0-5.0)
--- NOTE | 2017-09-01 12:24 | Diagnostic Imaging Report ---
PROCEDURE:CHEST SINGLE (PORTABLE) TECHNIQUE:Portable AP chest INDICATION:Shortness of breath COMPARISON:[facility], DX, CHEST SINGLE (PORTABLE), 08/31/2017, 6:35. FINDINGS: Central vascular prominence with peribronchial cuffing and interstitial opacity. No pleural effusions. Prominent cardiac silhouette. 2-lead pacemaker over the right hemithorax; leads intact. Grossly intact skeleton. CONCLUSION: Mild cardiomegaly with central vascular congestion and mild interstitial edema. Dictated by: Javier Cook M.D. on 09/01/2017 at 12:25 Electronically approved by: Javier Cook M.D. on 09/01/2017 at 12:25
[2017-09-01 12:27] LABS: ALBUMIN 3.3 g/dL (3.5-5.0); ALBUMIN/GLOBULIN RATIO 0.9 (0.8-2.0); ANION GAP 22.3 mmol/L (8-16); CALCIUM 10.8 mg/dL (8.4-10.2); CREATININE, SERUM 4.24 mg/dL (0.57-1.11); MAGNESIUM 1.8 MG/DL (1.3-2.1); PHOSPHORUS 4.8 MG/DL (2.3-4.7); POTASSIUM 4.3 mmol/L (3.5-5.1)
[2017-09-01 12:28] LABS: BASOPHILS % 0.2 % (0.0-1.0); EOSINOPHILS # (AUTO) 0.1 (0.0-0.4); EOSINOPHILS % 0.3 % (0.0-6.0); HEMOGLOBIN 11.6 g/dL (12.0-16.0); LYMPHOCYTES # (AUTO) 0.9 (1.0-3.2); LYMPHOCYTES % 4.8 % (18.0-39.1); MEAN CORPUSCULAR HEMOGLOBIN 31.8 pg (28-32); MEAN CORPUSCULAR HGB CONC 33.1 g/dL (31-35); MEAN CORPUSCULAR VOLUME 95.9 fL (81-99); MONOCYTES # (AUTO) 1.1 (0.2-0.8); MONOCYTES % 5.6 % (4.4-11.3); NEUTROPHILS # (AUTO) 16.8 (2.1-6.9); NEUTROPHILS % 88.5 % (38.7-80.0); PLATELET COUNT 356 x10e3/uL (140-360); RED BLOOD COUNT 3.65 x10e6/uL (3.6-5.1); RED CELL DISTRIBUTION WIDTH 17.3 % (11.7-14.4)
[2017-09-01 12:39] LABS: INR 3.34; PROTHROMBIN TIME 31.8 seconds (11.9-14.5)
[2017-09-01 12:40] LABS: PARTIAL THROMBOPLASTIN TIME 61.9 seconds (23.8-35.5)
[2017-09-01 17:19] LABS: ABG PCO2 26 mmHg (41-51)
[2017-09-01 17:20] LABS: ABG HCO3 25 mmol/L (23-28); ABG PO2 91 mmHg (80-105)
[2017-09-01] MEDS: LINEZOLID 600 MG/D5W 300ML 300 ML IV SCH (17:40)
--- NOTE | 2017-09-01 18:07 | Consultation ---
DATE OF CONSULTATION: August 30, 2017 PULMONARY MEDICINE CONSULT REFERRING PHYSICIAN: Dr. Kuldeep Ewing REASON FOR REFERRAL: Abnormal chest radiography. HISTORY: Ms. Loza was seen and examined at bedside. She is well known to me as a pleasant 77-year-old female, and today she has abnormal chest radiography. Patient well known with lifsg-el-zztypcb systolic heart dysfunction and recurrent fluid overload, pneumonias, and pleural effusions. Recently, she has been at rehab facility trying to regain her strength, and notably she had recent fall 3 days prior with a normal head CT, she was on anticoagulation. However, she has been noted to have more sluggishness. She has been more short of breath. She is sent to acute care [facility] for emergent evaluation. During this evaluation, it is seen her chest x-ray showed pulmonary edema pattern. She is admitted for further aggressive care. So far hemodialysis has taken out 3 liters emergently already. However, she is still low in energy and intermittently appears confused. PAST MEDICAL HISTORY: Phudq-cx-gfjtpmm systolic heart failure, hypertension, diabetes, hyperlipidemia, end-stage renal disease. MEDICATIONS: Medication list reviewed per electronic record. ALLERGIES: REVIEWED PER ELECTRONIC RECORD. SOCIAL HISTORY: No current smoking, no drinking, no drugs. Patient at rehab facility. FAMILY HISTORY: Noncontributory. REVIEW OF SYSTEMS: Cannot get reliably as she is altered. OBJECTIVE: VITAL SIGNS: Afebrile, vital signs noted per electronic record. GENERAL: In no acute distress, alert, calm in bed. HEENT: Normocephalic, atraumatic. NECK: Supple. Throat midline. LUNGS: Bilateral air entry, bilateral crackles, limited due to limited participation. CARDIAC: S1 and S2. Small murmur, no gallops. ABDOMEN: Soft, nontender. EXTREMITIES: No clubbing, no cyanosis, there is 1+ edema at this time. INTEGUMENT: No rash, no purpura. LABS: Labs reviewed per electronic record. IMPRESSIONS AND PLAN: 1. Respiratory distress. 2. Pulmonary edema. 3. End-stage renal disease. 4. Rkpfi-ep-mqifasr systolic cardiomyopathy and heart failure. 5. Possible pneumonia. 6. Weakness. 7. Encephalopathy, rule out possible sepsis or other. Follow up very closely. Serial neurologic exams. Low threshold for antibiotics. Patient will have continued dialysis as to negative balance as tolerated. Patient needs fluid restriction or other means of optimized nutritional status so that she does not get overloaded so easily. Patient will be continued on diuretic if nephrology that she still makes urine. Will follow along closely. Continue deep venous thrombosis prophylaxis. Thank you very much, Dr. Ewing for allowing me the chance to participate in care of Ms. Loza. Do not hesitate to contact me if I can help in any way. Job#: [id number]
--- NOTE | 2017-09-01 18:26 | Progress Note ---
DATE: September 01, 2017 CARDIOLOGY PROGRESS NOTE SUBJECTIVE: The patient had code blue called during dialysis earlier today. However, staff indicates that the patient never lost a pulse. She is now transferred to the ICU for closer monitoring. She is awake on BiPAP. Denies complaints, but is unclear of the exact sequence of events. OBJECTIVE VITALS: Temperature 97.3 degrees, pulse 66, respiratory rate 22, blood pressure 122/53, oxygen saturation 93% on BiPAP. GENERAL: Awake and in no acute distress. LUNGS: Clear to auscultation bilaterally. No wheezes or crackles. CARDIOVASCULAR: Normal rate. Regular rhythm. No murmur. Normal S1 and S2. ABDOMEN: Soft and nontender. EXTREMITIES: One plus pitting edema. CARDIAC MEDICATIONS 1. Eliquis 5 mg p.o. b.i.d. 2. Aspirin 81 mg p.o. q.a.m. LABS: WBC 19.01, hemoglobin 11.6, hematocrit 35, and platelets 356,000. Sodium 135, potassium 4.3, chloride 94, CO2 23, BUN 29, creatinine 4.24. Troponin I 4.028. INR 3.34. ABG is 7.6, pCO2 26, pO2 91, O2 saturation 98%. Telemetry is normal sinus rhythm. IMPRESSION 1. Fnbit-rv-qikzvpi systolic and diastolic heart failure. 2. End-stage renal disease, on hemodialysis. 3. Volume overload secondary to above. 4. Multivessel coronary artery disease with recent ifg-EJ-uaeyogbnr myocardial infarction. 5. Hypertension. 6. Hyperlipidemia. RECOMMENDATIONS: Volume management per nephrology given end-stage renal disease. Continue current cardiac medications. Trend cardiac enzymes. This could be demand ischemia in the setting of hypotension and multivessel CAD versus true epq-WV-xqqvvdrpu myocardial infarction. The patient has previously declined coronary artery bypass surgery due to the surgical risks. She is anticoagulated on Eliquis. Continue conservative medical therapy. Thank you for this consult. We will continue to follow. Job#: [id number] RUBÉN WIGGINS
[2017-09-01 18:56] LABS: CREATINE KINASE MB 4.5 ng/mL (0-5.0)
[2017-09-02] VITALS (15 sets, daily range): BP systolic 92–124; BP diastolic 38–63
--- NOTE | 2017-09-02 03:15 | Progress Note ---
DATE: September 01, 2017 PULMONARY MEDICINE PROGRESS NOTE SUBJECTIVE: Ms. Loza was seen and examined at bedside. Patient had about 3 hours of dialysis today. She has 1.1 liters out. During dialysis, she became apneic. She became dusky. She stopped breathing basically and went to respiratory failure. However, she did not go to full cardiac arrest. Rapid response team and code blue team came out and were able to resuscitate her. She was given BiPAP for salvage. We needed as she was not breathing. However, towards the evening, she was better and breathing spontaneously off BiPAP. No shocks. REVIEW OF SYSTEMS: No headaches, no rash. OBJECTIVE: VITAL SIGNS: Afebrile, vital signs noted per electronic record. GENERAL: In no acute distress, alert and calm. HEENT: Normocephalic, atraumatic. NECK: Supple. Throat midline. LUNGS: Bilateral air entry, few rhonchi, decreased effort. CARDIOVASCULAR: S1, S2. No murmurs, rubs, or gallops. ABDOMEN: Soft, nontender. EXTREMITIES: No clubbing, no cyanosis, there is 1+ edema. INTEGUMENT: No rash, no purpura. LABS: 4.6 potassium, 49 BUN, 6.4 creatinine. 19 white count, 36 hematocrit, 376,000 platelets. 7.65/26/437. IMPRESSION AND PLAN: 1. Acute respiratory failure and evolution. 2. Hypoxemia. 3. Apneic, bradypnea, multifactorial. 4. Combined metabolic and respiratory alkalosis. 5. Transient hypotension without shock. 6. End-stage renal disease. 7. Fluid overload. 8. Possible sepsis. Continue current treatment at this time. She remains on antibiotics. Dialysis was terminated and she was given her blood back. However, her future dialysis will have to be under caution. Continue cardiac medications. Continue blood thinner, which is apixaban. Repeat blood gases as needed. Nephrology to try to correct the alkalosis. Job#: [id number]
[2017-09-02] MEDS: LINEZOLID 600 MG/D5W 300ML 300 ML IV SCH ×3 (04:01→18:33)
[2017-09-02 06:03] LABS: BASOPHILS % 0.2 % (0.0-1.0); EOSINOPHILS # (AUTO) 0.1 (0.0-0.4); EOSINOPHILS % 0.5 % (0.0-6.0); HEMATOCRIT 36.7 % (34.2-44.1); HEMOGLOBIN 11.8 g/dL (12.0-16.0); LYMPHOCYTES # (AUTO) 1.5 (1.0-3.2); LYMPHOCYTES % 8.5 % (18.0-39.1); MEAN CORPUSCULAR HEMOGLOBIN 31.6 pg (28-32); MEAN CORPUSCULAR HGB CONC 32.2 g/dL (31-35); MEAN CORPUSCULAR VOLUME 98.4 fL (81-99); MONOCYTES # (AUTO) 1.5 (0.2-0.8); MONOCYTES % 8.6 % (4.4-11.3); NEUTROPHILS # (AUTO) 14.5 (2.1-6.9); NEUTROPHILS % 81.5 % (38.7-80.0); PLATELET COUNT 349 x10e3/uL (140-360); RED BLOOD COUNT 3.73 x10e6/uL (3.6-5.1); RED CELL DISTRIBUTION WIDTH 17.2 % (11.7-14.4)
[2017-09-02 06:38] LABS: ANION GAP 18.2 mmol/L (8-16); CALCIUM 11.1 mg/dL (8.4-10.2); CREATININE, SERUM 5.79 mg/dL (0.57-1.11); MAGNESIUM 1.9 MG/DL (1.3-2.1); PHOSPHORUS 6.8 MG/DL (2.3-4.7); POTASSIUM 4.2 mmol/L (3.5-5.1)
--- NOTE | 2017-09-02 06:50 | Diagnostic Imaging Report ---
HIP LEFT 2-3 VW (+/- PELVIS) HISTORY: Pain COMPARISON: None FINDINGS: Bones: No displaced fracture. Osseous alignment is within normal limits. Joints: Minimal degenerative changes of the lower lumbar spine. Otherwise, the joint spaces are well-maintained. Soft tissues: Extensive vascular calcifications. IMPRESSION: No acute osseous abnormality. Extensive atherosclerotic disease of the abdominal pelvic and lower extremity vessels Signed by: Dr. Brian Page M.D. on 09/02/2017 6:47 AM
--- NOTE | 2017-09-02 06:56 | Diagnostic Imaging Report ---
EXAMINATION: CHEST SINGLE (PORTABLE) INDICATION: CHF exacerbation. COMPARISON: 09/01/2017 FINDINGS: TUBES and LINES: The pacemaker is intact. LUNGS: Lungs are not well inflated. Improving central vascular congestion There is decreased in perihilar interstitial opacities, consistent with interstitial edema. PLEURA: No pleural effusion or pneumothorax. HEART AND MEDIASTINUM: Cardiac size is moderately enlarged. There are atherosclerotic calcifications within the aorta. BONES AND SOFT TISSUES: No acute osseous lesion. Soft tissues are unremarkable. UPPER ABDOMEN: No free air under the diaphragm. IMPRESSION: Improving cardiogenic pulmonary edema and central vascular congestion. Signed by: Dr. Brian Page M.D. on 09/02/2017 6:53 AM
[2017-09-02] MEDS: SEVELAMER CARBONATE 800 MG TAB PO SCH ×3 (08:00→18:22)
[2017-09-02 08:20] LABS: LYMPHOCYTES % (MANUAL) 14 % (19-48); MONOCYTES % (MANUAL) 4 % (3.4-9.0); NEUTROPHILS % (MANUAL) 81 % (40-74); PLATELET ESTIMATE ADEQUATE; RBC MORPHOLOGY COMMENT NORMAL
[2017-09-02 08:21] LABS: ANISOCYTOSIS SLIGHT; ELLIPTOCYTE, RBC SLIGHT; PLATELET MORPHOLOGY COMMENT NORMAL
--- NOTE | 2017-09-02 10:12 | Progress Note ---
DATE: September 02, 2017 RENAL PROGRESS NOTE SUBJECTIVE: Followed for end-stage renal disease, on hemodialysis, Wednesday, Wednesday, Wednesday. Patient had become unstable during dialysis yesterday, had become hypotensive. After fluid bolus, patient responded quite well. She had passed out and then recovered and was transferred to ICU, observed in ICU. She has been on room air overnight, in no acute respiratory distress. The blood pressures have normalized now. She is not in any acute need for dialysis today. OBJECTIVE: VITAL SIGNS: Have been noted and are as follows: Blood pressure is 118/56, afebrile, 73 pulse, 96% on room air. LUNGS: Clear to auscultation bilaterally. CARDIOVASCULAR: S1 and S2. No gallop, rub, or murmur. ABDOMEN: Soft. Positive bowel sounds. Nontender. No organomegaly. EXTREMITIES: No evidence of lower extremity edema. LABS: Hemoglobin 11.8, hematocrit 36.7. Sodium today is 135, potassium 4.2, chloride 90, bicarb 31, BUN 45, creatinine is 5.79. Calcium is running high at 11.1. IMPRESSION AND PLAN: 1. End-stage renal disease. Continue dialysis, Wednesday, Wednesday, Wednesday. No dialysis needed today. 2. Hypotension. Would leave off of blood pressure lowering medication. Patient's blood pressures runs very normal to slightly on the lower side and it is difficult to get fluid off the patient when she needs it during dialysis especially since she gets fluid overloaded very quickly and it is always a challenge trying to get fluid off of her. Would leave her off of her carvedilol as well as isosorbide mononitrate. Would for now leave her off the furosemide also as she is not making any urine at this time. 3. Anemia of chronic disease, stable. Would follow closely and make further recommendations. 4. Hypercalcemia. Her parathyroid hormone is slightly elevated at 356. Her calcium elevation is from an unclear cause, however, it could be certainly from primary hyperparathyroidism. It does warrant some workup for now. Will check a parathyroid hormone related peptide. Would also check serum protein electrophoresis, urine protein electrophoresis as well as a vitamin D1 25 [place] level, rule out possibilities for hypercalcemia, could be from prolonged immobilization, although she has not been overly mobile in the hospital. Would also rule out the possibility of parathyroid adenoma. Will check nuclear medicine parathyroid hormone scan just to make sure that that is not a possibility here. I will also dialyze the patient tomorrow on a lower calcium bath and make further recommendations. Would not hydrate the patient at this time since the patient gets fluid overloaded secondary to her cardiomyopathy. She appears to be euvolemic at this time. Thank you once again. Job#: [id number]
[2017-09-02] MEDS: NIACIN 500 MG TABSR PO SCH (10:21)
[2017-09-02] MEDS: APIXABAN 5 MG TABLET PO SCH ×2 (10:21→18:22)
[2017-09-02] MEDS: ASPIRIN 81 MG ENTERIC COATED PO SCH (10:21)
--- NOTE | 2017-09-02 12:07 | Progress Note ---
DATE: September 02, 2017 CARDIOLOGY PROGRESS NOTE SUBJECTIVE: The patient denies chest pain or shortness of breath. OBJECTIVE VITALS: Temperature 97.5 degrees, pulse 67, respiratory rate 18, blood pressure 118/56, oxygen saturation 96% on room air. GENERAL: Elderly woman, frail, in no acute distress, awake and alert. LUNGS: Clear to auscultation bilaterally. No wheezes or crackles. CARDIOVASCULAR: Normal rate. Regular rhythm. No murmur. Normal S1 and S2. ABDOMEN: Soft and nontender. EXTREMITIES: Trace edema. CARDIAC MEDICATIONS 1. Apixaban 5 mg p.o. b.i.d. 2. Niacin 500 mg p.o. daily. 3. Aspirin 81 mg p.o. q.a.m. LABS: WBC 17.74, hemoglobin 11.8, hematocrit 36.7, platelets 349. Sodium 135, potassium 4.2, chloride 90, CO2 31, BUN 25, creatinine 5.79. Troponin I 3.895. Urine culture: Enterococcus faecalis. TELEMETRY: Normal sinus rhythm. ECHOCARDIOGRAM: Technically difficult study with suboptimal views. The left ventricular systolic function was severely impaired with EF between 20% and 25%. There was mild concentric LVH with pseudonormal LV filling pattern and mild aortic stenosis. Estimated RVSP was 47 mmHg, assuming an RV pressure of 3 mmHg. A trivial pericardial effusion was noted. LOWER EXTREMITY ARTERIAL DOPPLERS: Monophasic waveforms in the bilateral popliteal, anterior tibial artery and dorsalis pedis arteries suggestive of hemodynamically significant stenosis proximally in bilateral lower extremities. The posterior tibial artery appeared to be occluded bilaterally. IMPRESSION 1. Hhngg-vh-tcktasp systolic and diastolic heart failure. 2. End-stage renal disease on hemodialysis. 3. Volume overload secondary to above. 4. Wsy-IP-tzretmffj myocardial infarction. 5. Multivessel coronary artery disease. 6. Hypertension. 7. Hyperlipidemia. RECOMMENDATIONS: Volume management per nephrology given end-stage renal disease. Continue current cardiac medications. Elevated troponin likely brz-KB-iwyjsjlvu myocardial infarction, but could also be demand ischemia in the setting of hypotension. The patient has previously declined coronary artery bypass surgery due to the surgical risks. Continue Eliquis for CVA prophylaxis. Continue conservative medical therapy. Thank you for this consult. We will continue to follow. Job#: [id number]
[2017-09-02] MEDS: ERTAPENEM 1GM/NS 100ML 100 ML IV SCH (13:37)
--- NOTE | 2017-09-02 18:00 | Diagnostic Imaging Report ---
Parathyroid Scan Reason for exam: 77 F admitted with CHF and leukocytosis; elevated serum calcium levels. Radiopharmaceutical: Tc-99m sestamibi 24 mCi After intravenous administration of the radiopharmaceutical, immediate and 2-hour planar images of the neck and upper chest were obtained. (Tomographic images were not obtained because the patient was not able to cooperate with being still. Tracer is diffusely increased in the left thyroid lobe compared to the right lobe on the initial planar images. On the delayed planar images, tracer washes out of the right thyroid lobe but not from the left thyroid lobe. Impression: Appearance of the left thyroid lobe suggests thyroid adenoma versus parathyroid adenoma. If the parathyroid hormone level is elevated, consider radioiodine thyroid scan. A thyroid adenoma will have increased accumulation of radioiodine whereas a parathyroid adenoma will not. Signed by: Dr. Lisandra Roblero M.D. on 09/02/2017 5:56 PM
[2017-09-03] VITALS (8 sets, daily range): BP systolic 124–144; BP diastolic 48–79
[2017-09-03 01:06] LABS: ABG HCO3 30 mmol/L (23-28); ABG PCO2 42 mmHg (41-51); ABG PH 7.47 (7.31-7.41); ABG PO2 75 mmHg (80-105)
--- NOTE | 2017-09-03 03:02 | Progress Note ---
DATE: September 02, 2017 PULMONARY MEDICINE PROGRESS NOTE SUBJECTIVE: Ms. Loza was seen and examined at bedside. She is on room air FiO2. 97% oxygen saturation. No bowel movements. She ate greater than 50% of her diet. She has little more energy today, but overall still very weak. REVIEW OF SYSTEMS: No headaches, no nosebleeds. OBJECTIVE: VITAL SIGNS: Afebrile, vital signs noted per electronic record. GENERAL: In no acute distress, but very weak, calm, low energy. HEENT: Normocephalic, atraumatic. NECK: Supple. Throat midline. LUNGS: Bilateral air entry, few rhonchi, few crackles. CARDIOVASCULAR: S1, S2. No murmurs, rubs, or gallops. ABDOMEN: Soft, nontender. EXTREMITIES: No clubbing, no cyanosis, there is 1+ to 2+ edema. INTEGUMENT: No rash, no purpura. LABS: Labs reviewed per electronic record. Chest x-ray with overload pattern/pneumonia pattern. IMPRESSION AND PLAN: 1. Fluid overload. 2. Recurrent pleural effusions. 3. Pneumonia. 4. Acute respiratory failure, apneic breathing, status post backup bilevel positive airway pressure rescue. 5. Weakness. Resume physical therapy and occupational therapy. Dialysis per renal expert. Cautions should be in place to avoid failure circulatory downey. Repeat chest x-ray and reassess pleural effusion overload. Follow up closely. Job#: [id number]
[2017-09-03] MEDS: LINEZOLID 600 MG/D5W 300ML 300 ML IV SCH ×2 (05:31→17:23)
[2017-09-03 06:03] LABS: CLARITY,URINE CLOUDY (CLEAR); COLOR,URINE AMBER (YELLOW)
[2017-09-03 06:04] LABS: BACTERIA,URINE RARE /HPF; BILIRUBIN,URINE 1+ (NEGATIVE); EPITHELIAL CELLS,URINE FEW /LPF; KETONES,URINE TRACE (NEGATIVE); LEUKOCYTE ESTERASE ,URINE TRACE (NEGATIVE); NITRITE,URINE NEGATIVE (NEGATIVE); PROTEIN,URINE DIPSTICK 3+ (NEGATIVE); RBC,URINE 0-5 /HPF (0-5); URINE UROBILINOGEN 0.2 mg/dL (0.2 - 1); WBC,URINE (MAN) 0-5 /HPF (0-5)
[2017-09-03 06:05] LABS: YEAST,URINE MANY
[2017-09-03 06:21] LABS: BASOPHILS % 0.2 % (0.0-1.0); EOSINOPHILS # (AUTO) 0.2 (0.0-0.4); HEMATOCRIT 35.9 % (34.2-44.1); HEMOGLOBIN 11.8 g/dL (12.0-16.0); LYMPHOCYTES # (AUTO) 1.7 (1.0-3.2); LYMPHOCYTES % 10.4 % (18.0-39.1); MEAN CORPUSCULAR HEMOGLOBIN 31.7 pg (28-32); MEAN CORPUSCULAR HGB CONC 32.9 g/dL (31-35); MEAN CORPUSCULAR VOLUME 96.5 fL (81-99); MONOCYTES # (AUTO) 1.5 (0.2-0.8); MONOCYTES % 9.2 % (4.4-11.3); NEUTROPHILS # (AUTO) 12.6 (2.1-6.9); NEUTROPHILS % 77.4 % (38.7-80.0); PLATELET COUNT 355 x10e3/uL (140-360); RED BLOOD COUNT 3.72 x10e6/uL (3.6-5.1); RED CELL DISTRIBUTION WIDTH 16.9 % (11.7-14.4)
[2017-09-03 06:48] LABS: ANION GAP 19.6 mmol/L (8-16); CALCIUM 10.7 mg/dL (8.4-10.2); CREATININE, SERUM 6.91 mg/dL (0.57-1.11); MAGNESIUM 2.1 MG/DL (1.3-2.1); PHOSPHORUS 6.5 MG/DL (2.3-4.7); POTASSIUM 4.6 mmol/L (3.5-5.1)
--- NOTE | 2017-09-03 06:52 | Diagnostic Imaging Report ---
EXAMINATION: CHEST SINGLE (PORTABLE) INDICATION: Congestive heart failure. COMPARISON: 09/02/2017 FINDINGS: TUBES and LINES: The pacemaker is intact. LUNGS: Lungs are not well inflated. Stable central vascular congestion There is stable in perihilar interstitial opacities, consistent with interstitial edema. PLEURA: No pleural effusion or pneumothorax. HEART AND MEDIASTINUM: Cardiac size is moderately enlarged. There are atherosclerotic calcifications within the aorta. BONES AND SOFT TISSUES: No acute osseous lesion. Soft tissues are unremarkable. UPPER ABDOMEN: No free air under the diaphragm. IMPRESSION: Stable chest with mild cardiogenic pulmonary edema and central vascular congestion. Signed by: Dr. Brian Page M.D. on 09/03/2017 6:46 AM
[2017-09-03] MEDS: APIXABAN 5 MG TABLET PO SCH ×2 (08:02→17:23)
[2017-09-03] MEDS: NIACIN 500 MG TABSR PO SCH (08:02)
[2017-09-03] MEDS: ASPIRIN 81 MG ENTERIC COATED PO SCH (08:02)
[2017-09-03] MEDS: SEVELAMER CARBONATE 800 MG TAB PO SCH ×3 (08:02→17:23)
[2017-09-03] MEDS: ERTAPENEM 1GM/NS 100ML 100 ML IV SCH (12:18)
--- NOTE | 2017-09-03 13:30 | Progress Note ---
DATE: September 03, 2017 PULMONARY MEDICINE PROGRESS NOTE SUBJECTIVE: Ms. Loza was seen and examined at bedside. She continues with very weak status. She was eating very small amounts per today. Patient easily arousable and talking but low on energy. White count remains elevated. REVIEW OF SYSTEMS: No bleeding, no rashes. OBJECTIVE VITAL SIGNS: Afebrile, vital signs noted per the chart record. GENERAL: No acute distress but very weak and frail. HEENT: Normocephalic, atraumatic. NECK: Supple. LUNGS: Bilateral air entry, few rhonchi, few rales. CARDIOVASCULAR: S1, S2. No murmurs, rubs, or gallops. ABDOMEN: Soft, nontender. EXTREMITIES: No clubbing, no cyanosis, there is 1+ edema. INTEGUMENT: No rash. No purpura. LABS: White count 16, 35 hematocrit, 6.9 creatinine. INR was 2.3 two days ago. IMPRESSION/PLAN: 1. Fluid overload. 2. Possible pneumonia. 3. Respiratory failure, resolved on bilevel positive airway pressure salvage. 4. End stage renal disease. 5. Protein calorie malnutrition. Continue current treatment. Aggressive OT and PT. Patient is expected for dialysis today I believe and she needs to be watched closely during this. Continue to slowly get her a negative balance and of note today's chest x-ray continues to have some fluid remnant. Continue IV antibiotics for pneumonia. Job#: [id number] JORJE
--- NOTE | 2017-09-03 14:13 | Progress Note ---
DATE: September 03, 2017 RENAL PROGRESS NOTE SUBJECTIVE: Followed for end stage renal disease, tolerating dialysis Wednesday, Wednesday, Wednesday. Patient's blood pressures are much better now. Patient had dialysis on Wednesday, is due for her regular dialysis treatment today. No nausea, no vomiting, no shortness of breath at this time. OBJECTIVE: VITAL SIGNS: Are noted. Blood pressure 142/76, 96% on room air, 70 pulse, afebrile. LUNGS: Minimal rales at the bases bilaterally. CARDIOVASCULAR: S1, S2. No rub. ABDOMEN: Soft, nontender. EXTREMITIES: No edema. LABS: Sodium 130, potassium 4.6, chloride 88, carb 27, BUN 57, creatinine 6.9, calcium 10.7, phosphorus 6.5. PTH was ordered and was 356. PTH scan, nuclear medicine scan, was done and it is suggestive of a parathyroid adenoma versus possibly thyroid adenoma although more likely this is a parathyroid adenoma given the elevated calcium level as well as elevated PTH level. A phosphorus is 6.5, magnesium 2.1. Hemoglobin is fine at 11.8 and 35.9. IMPRESSION AND PLAN: 1. End stage renal disease. Will continue dialysis per schedule Wednesday, Wednesday, Wednesday. Most likely will not require dialysis over the weekend. 2. Hypertension. For now will leave off blood pressure lowering medications. We will watch the blood pressures very closely. If patient is able to tolerate, will start low dose carvedilol next week on the patient or over the weekend if the blood pressure goes up. 3. Hypertension. Blood pressure is within range. Would not start blood pressure medications today especially since the patient passed out during dialysis on Wednesday. Will watch the blood pressure closely over the weekend after fluid is removed off the patient today. 4. Anemia of chronic disease, stable. 5. Hypercalcemia. Workup so far is indicative of primary hyperparathyroidism from probable parathyroid adenoma. I will place the patient on oral Sensipar 30 mg daily. No further workup at this time is necessary. Will continue to monitor calcium and will do dialysis today on a low calcium bath. 6. Hyperphosphatemia. On sevelamer already. Will continue to monitor phosphorus level. 7. History of congestive heart failure. If after removal of fluid today and over the weekend patient's blood pressure is consistently above 150 mmHg systolic BP, then she would benefit from low dose of carvedilol but would not be too aggressive with blood pressure management on this patient. Job#: [id number] JORJE
[2017-09-03] MEDS ORDERED: SODIUM CHLORIDE 0.9% 250ML 250 ML ONE (17:17)
[2017-09-04] VITALS (8 sets, daily range): BP systolic 104–127; BP diastolic 44–61
[2017-09-04] MEDS: LINEZOLID 600 MG/D5W 300ML 300 ML IV SCH ×2 (06:00→17:17)
[2017-09-04 06:06] LABS: BASOPHILS % 0.2 % (0.0-1.0); EOSINOPHILS # (AUTO) 0.1 (0.0-0.4); EOSINOPHILS % 0.4 % (0.0-6.0); HEMATOCRIT 38.1 % (34.2-44.1); HEMOGLOBIN 12.1 g/dL (12.0-16.0); LYMPHOCYTES % 5.9 % (18.0-39.1); MEAN CORPUSCULAR HEMOGLOBIN 32.4 pg (28-32); MEAN CORPUSCULAR HGB CONC 31.8 g/dL (31-35); MEAN CORPUSCULAR VOLUME 101.9 fL (81-99); MONOCYTES # (AUTO) 1.1 (0.2-0.8); MONOCYTES % 6.8 % (4.4-11.3); NEUTROPHILS # (AUTO) 14.1 (2.1-6.9); NEUTROPHILS % 86.1 % (38.7-80.0); PLATELET COUNT 313 x10e3/uL (140-360); RED BLOOD COUNT 3.74 x10e6/uL (3.6-5.1); RED CELL DISTRIBUTION WIDTH 17.1 % (11.7-14.4)
[2017-09-04 06:20] LABS: ANION GAP 14.9 mmol/L (8-16); CALCIUM 10.4 mg/dL (8.4-10.2); CREATININE, SERUM 4.02 mg/dL (0.57-1.11); PHOSPHORUS 4.3 MG/DL (2.3-4.7); POTASSIUM 4.9 mmol/L (3.5-5.1)
[2017-09-04 06:21] LABS: INR 2.37; PROTHROMBIN TIME 24.3 seconds (11.9-14.5)
--- NOTE | 2017-09-04 06:48 | Diagnostic Imaging Report ---
EXAMINATION: CHEST SINGLE (PORTABLE) INDICATION: Congestive heart failure COMPARISON: None FINDINGS: TUBES and LINES: The pacemaker is intact. LUNGS: Lungs are not well inflated. There are areas of left lower lobe atelectasis. There is improving perihilar interstitial opacities, consistent with interstitial edema. PLEURA: No pleural effusion or pneumothorax. HEART AND MEDIASTINUM: Cardiac size is moderately enlarged. There are atherosclerotic calcifications within the aorta. BONES AND SOFT TISSUES: No acute osseous lesion. Soft tissues are unremarkable. UPPER ABDOMEN: No free air under the diaphragm. IMPRESSION: 1. Stable chest with areas of left lower lobe atelectasis and mild pulmonary edema which appears to be improving Signed by: Dr. Brian Page M.D. on 09/04/2017 6:45 AM
[2017-09-04] MEDS: SEVELAMER CARBONATE 800 MG TAB PO SCH ×3 (08:00→17:17)
[2017-09-04] MEDS: MEGACE 400MG/ 10ML CUP PO SCH (08:40)
[2017-09-04] MEDS: ASPIRIN 81 MG ENTERIC COATED PO SCH (08:40)
[2017-09-04] MEDS: APIXABAN 5 MG TABLET PO SCH ×2 (08:40→17:17)
[2017-09-04] MEDS: CINACALCET 30 MG TAB PO SCH (08:40)
[2017-09-04] MEDS: NIACIN 500 MG TABSR PO SCH (08:40)
[2017-09-04 11:10] LABS: EOSINOPHILS % (MANUAL) 1 % (0-7); LYMPHOCYTES % (MANUAL) 5 % (19-48); NEUTROPHILS % (MANUAL) 91 % (40-74)
[2017-09-04 11:11] LABS: ANISOCYTOSIS SLIG; PLATELET ESTIMATE ADEQUATE; PLATELET MORPHOLOGY COMMENT NORMAL; POIKILOCYTOSIS SLIGHT; RBC MORPHOLOGY COMMENT NORMAL
[2017-09-04] MEDS: ERTAPENEM 1GM/NS 100ML 100 ML IV SCH (12:08)
--- NOTE | 2017-09-04 13:22 | Progress Note ---
DATE: CARDIOLOGY PROGRESS NOTE SUBJECTIVE: The patient is disoriented. However, she denies any chest pain or shortness of breath. at the bedside reports the patient being disoriented, lethargic, and confused. OBJECTIVE VITAL SIGNS: Temperature 98.3, pulse 93, respiratory rate 14, blood pressure 104/54, oxygen saturation 94% on room air. CARDIOVASCULAR MEDICATIONS 1. Aspirin 81 mg p.o. daily. 2. Apixaban 10 mg p.o. b.i.d. 3. Niacin 500 mg p.o. daily. LABS: WBC 16.35, hemoglobin 12.1, hematocrit 38.1, platelets 313. Sodium 136, potassium 4.9, BUN 24, creatinine 4.02, glucose 159, calcium 10.4, phosphorus 4.3. PT 24.3, INR 2.37, PTT 43.0. CHEST X-RAY: Stable chest with areas of left lower lobe atelectasis and mild pulmonary edema, which appears to be improving. TELEMETRY: Sinus rhythm with bundle-branch block. GENERAL: Drowsy; however, responding to name calling. Disoriented. LUNGS: Diminished breath sounds in anterior lower lobes. Otherwise, clear to auscultation. CARDIOVASCULAR: Regular rate and rhythm. Systolic murmur. Normal S1 and S2. ABDOMEN: Soft and nontender. LOWER EXTREMITIES: Trace edema bilaterally. ASSESSMENT 1. Lmvfd-tf-upjhsrt systolic and diastolic heart failure. 2. End-stage renal disease on hemodialysis. 3. Volume overload secondary to above. 4. Aaw-OL-puwlofvvc myocardial infarction. 5. Multivessel coronary artery disease. 6. Hypertension. 7. Hyperlipidemia. RECOMMENDATIONS: Volume management per nephrology. Continue the above-listed cardiac medications. Patient had previously declined coronary artery bypass surgery due to surgical risk. Continue Eliquis for CVA prophylaxis. Continue conservative medical therapy. Monitor closely and maintain on telemetry. Will continue to follow. Dictated by: Katya Lorenzo NP Job#: [id number]
--- NOTE | 2017-09-04 13:52 | Progress Note ---
DATE: September 04, 2017 REASON FOR CONSULTATION: End-stage renal disease. SUBJECTIVE: No acute events overnight. OBJECTIVE GENERAL: Lying comfortably in bed. VITAL SIGNS: Temperature 98.3, heart rate 93, respiratory rate 14, blood pressure 104/54. O2 sat is 94% on room air. HEENT: NC, AT, EOMI. LUNGS: Decreased breath sounds at the bases bilaterally. HEART: Regular rate and rhythm, S1 and S2 normal. ABDOMEN: Soft, nontender. EXTREMITIES: No edema. LABS: Reviewed on electronic medical record. White blood cell count 16, hemoglobin 12, hematocrit 38, platelet count 313. IMAGING: Reviewed on electronic medical record. Chest x-ray performed today showed left lower lobe atelectasis and mild pulmonary edema, which appears to be improving. ASSESSMENT AND PLAN 1. End-stage renal disease. Will continue dialysis on Wednesday, Wednesday and Wednesday schedule. Will continue to avoid antihypertensives as the blood pressure trends down very quickly. 2. Secondary hyperparathyroidism. Continue Sensipar. 3. Hyperphosphatemia. Continue on Renvela. 4. Anemia of chronic kidney disease. Will resume erythropoietin and Venofer as an outpatient. Job#: [id number]
[2017-09-04] MEDS: FLUCONAZOLE 200 MG/100 ML 100 ML IV SCH (14:00)
--- NOTE | 2017-09-04 14:43 | Progress Note ---
DATE: September 03, 2017 CARDIOLOGY PROGRESS NOTE SUBJECTIVE: Patient denies chest pain or shortness of breath. She complains of weakness. OBJECTIVE VITALS: Temperature 97.3 degrees, pulse 70, respiratory rate 16, blood pressure 142/76, oxygen saturation 96% on room air. GENERAL: Awake, alert, no acute distress. Elderly woman, frail. LUNGS: Clear to auscultation bilaterally. No wheezes or crackles. CARDIOVASCULAR: Normal rate. Regular rhythm. No murmur. Normal S1/S2. ABDOMEN: Soft, nontender. EXTREMITIES: Trace edema. CARDIAC MEDICATIONS 1. Apixaban 5 mg p.o. b.i.d. 2. Aspirin 81 mg p.o. daily. LABS: WBC 16.23, hemoglobin 11.8, hematocrit 35.9, platelets 355,000. Sodium 130, potassium 4.6, chloride 88, CO2 27, BUN 57, creatinine 6.91. TELEMETRY: Normal sinus rhythm. IMPRESSIONS 1. Axuxb-no-hgrvxsb systolic and diastolic heart failure. 2. End-stage renal disease, on hemodialysis. 3. Volume overload secondary to above. 4. Fwi-RA-moluifgei myocardial infarction. 5. Multivessel coronary artery disease. 6. Hypertension. 7. Hyperlipidemia. RECOMMENDATIONS: Volume management per nephrology given end-stage renal disease. Continue current cardiac medications. Elevated troponin is likely ntj-UZ-oxccemrka myocardial infarction, but it could also be demand ischemia in the setting of hypotension. The patient has previously declined coronary artery bypass surgery due to the surgical risks. Continue Eliquis for CVA prophylaxis. Continue conservative medical therapy. No CAILIN or ARB due to end-stage renal disease. Beta-blockade was stopped due to hypotension during dialysis. If patient remains stable, could consider re-challenging with low-dose metoprolol. Thank you for this consult. We will continue to follow. Job#: [id number] CQ
--- NOTE | 2017-09-04 15:58 | Progress Note ---
DATE: September 04, 2017 PULMONARY MEDICINE PROGRESS NOTE SUBJECTIVE: Ms. Loza was seen and examined at bedside. She continues to have a lot of weakness. She does arouse easily and spontaneously on simple, small stimuli. Chest x-ray looks to have a lot of pneumonia and fluid overload, which is stable. Almeida is in place. On 2 L per minute by nasal cannula, 99% oxygen saturation. REVIEW OF SYSTEMS: Cannot get reliably as she has limited communication. OBJECTIVE VITAL SIGNS: Afebrile, vital signs noted per the electronic record. GENERAL: No acute distress, very weak and hardly moving in bed. HEENT: Normocephalic, atraumatic. NECK: Supple. Throat midline. LUNGS: Bilateral air entry, rare rhonchi. Limited breaths and movement of air. CARDIOVASCULAR: S1, S2. No murmurs, rubs, or gallops. ABDOMEN: Soft, nontender. EXTREMITIES: No clubbing, no cyanosis. There is trace edema. INTEGUMENT: No rash. No purpura. LABS: Potassium 4.0, 24 BUN, 4.0 creatinine, 16 white count, 38 hematocrit, 313 platelets. IMPRESSION AND PLAN 1. Severe weakness. 2. Acute respiratory failure, resolved. 3. Fluid overload. 4. Pneumonia. 5. Failure to thrive. Very poor prognosis. The patient needs to mobilize. She needs to continue eating as much as she can. Continue to follow up chest x-ray to ensure appropriate resolution of her condition. The patient will continue to need dialysis as set for by renal specialist. Job#: [id number]
[2017-09-05 04:54] VITALS: BP 106/55
[2017-09-05] MEDS: LINEZOLID 600 MG/D5W 300ML 300 ML IV SCH ×2 (06:46→17:10)
--- NOTE | 2017-09-05 07:04 | Diagnostic Imaging Report ---
EXAMINATION: CHEST SINGLE (PORTABLE) INDICATION: Left lower lobe pneumonia COMPARISON: 09/04/2017 FINDINGS: TUBES and LINES: The pacemaker is intact. LUNGS: Lungs are not well inflated. There are areas of left lower lobe atelectasis. There is now worsening perihilar interstitial opacities, consistent with interstitial edema. PLEURA: No pleural effusion or pneumothorax. HEART AND MEDIASTINUM: Cardiac size is moderately enlarged. There are atherosclerotic calcifications within the aorta. BONES AND SOFT TISSUES: No acute osseous lesion. Soft tissues are unremarkable. UPPER ABDOMEN: No free air under the diaphragm. IMPRESSION: Worsening cardiogenic pulmonary edema with developing of more confluent left lung base atelectasis. Signed by: Dr. Brian Page M.D. on 09/05/2017 7:00 AM
[2017-09-05 07:56] LABS: BASOPHILS # (AUTO) 0.1 (0.0-0.1); BASOPHILS % 0.3 % (0.0-1.0); EOSINOPHILS # (AUTO) 0.2 (0.0-0.4); EOSINOPHILS % 0.7 % (0.0-6.0); HEMATOCRIT 33.9 % (34.2-44.1); HEMOGLOBIN 10.5 g/dL (12.0-16.0); LYMPHOCYTES # (AUTO) 2.1 (1.0-3.2); LYMPHOCYTES % 9.8 % (18.0-39.1); MEAN CORPUSCULAR HEMOGLOBIN 31.8 pg (28-32); MEAN CORPUSCULAR VOLUME 102.7 fL (81-99); MONOCYTES # (AUTO) 1.6 (0.2-0.8); MONOCYTES % 7.3 % (4.4-11.3); NEUTROPHILS # (AUTO) 17.4 (2.1-6.9); NEUTROPHILS % 81.4 % (38.7-80.0); PLATELET COUNT 284 x10e3/uL (140-360)
[2017-09-05 08:33] LABS: ALBUMIN 2.3 g/dL (3.5-5.0); ALBUMIN/GLOBULIN RATIO 0.7 (0.8-2.0); ANION GAP 16.9 mmol/L (8-16); CALCIUM 9.9 mg/dL (8.4-10.2); CREATININE, SERUM 5.53 mg/dL (0.57-1.11); POTASSIUM 4.9 mmol/L (3.5-5.1)
[2017-09-05 09:01] LABS: PHOSPHORUS 4.7 MG/DL (2.3-4.7)
[2017-09-05] MEDS: SEVELAMER CARBONATE 800 MG TAB PO SCH ×3 (09:39→17:10)
[2017-09-05] MEDS: MEGACE 400MG/ 10ML CUP PO SCH (09:39)
[2017-09-05] MEDS: ASPIRIN 81 MG ENTERIC COATED PO SCH (09:39)
[2017-09-05] MEDS: NIACIN 500 MG TABSR PO SCH (09:39)
[2017-09-05] MEDS: APIXABAN 5 MG TABLET PO SCH ×2 (09:39→17:10)
[2017-09-05] MEDS: CINACALCET 30 MG TAB PO SCH (09:39)
[2017-09-05] MEDS: FLUCONAZOLE 200 MG/100 ML 100 ML IV SCH (09:39)
--- NOTE | 2017-09-05 10:28 | Progress Note ---
DATE: September 05, 2017 CARDIOLOGY PROGRESS NOTE SUBJECTIVE: Ms. Loza is poorly responsive. PHYSICAL EXAMINATION VITAL SIGNS: Afebrile, heart rate 84, blood pressure 106/55. CARDIOVASCULAR: Regular rhythm. Systolic murmur. LUNGS: Occasional rhonchi bilaterally. EXTREMITIES: 2+ edema. CARDIAC MEDICATIONS: Reviewed. TELEMETRY: Shows sinus lead ventricular pacing. ASSESSMENT 1. Zsblv-dy-dpsjebw systolic heart failure. 2. End-stage renal disease. 3. Non-ST segment myocardial infarction in the setting of severe coronary artery disease. 4. Atrial fibrillation. RECOMMENDATIONS: Overall, prognosis is poor. Dialysis for now should be continued. Cardiac medication use is limited by relative bradycardia. At this point, no invasive intervention is planned. Job#: [id number] ANTIONE
[2017-09-05 10:57] VITALS: BP 108/58
[2017-09-05] MEDS: ERTAPENEM 1GM/NS 100ML 100 ML IV SCH (12:47)
[2017-09-05] MEDS ORDERED: NYSTATIN 15 GM POWDER UD BTL TOP PRN (16:15)
[2017-09-05 16:19] VITALS: BP 112/61
[2017-09-05 19:41] VITALS: BP 109/71
[2017-09-05 19:43] VITALS: BP 109/71
--- NOTE | 2017-09-05 21:33 | Progress Note ---
DATE: September 05, 2017 PULMONARY MEDICINE PROGRESS NOTE SUBJECTIVE: Ms. Loza was seen and examined at bedside. She continues to have lot of weakness. There is lot of decreased initiation of activities. she is suppressed, but she does not give a straightforward answer. Patient denies body pain and she denies that she is low in energy right now. Chest x-ray continued to show significant fluid excess and probably a little bit more today. REVIEW OF SYSTEMS: No headaches, no bleeding. OBJECTIVE: VITAL SIGNS: Afebrile, vital signs noted per electronic record. GENERAL: In no acute distress, alert and calm. HEENT: Normocephalic, atraumatic. NECK: Supple. Throat midline. LUNGS: Bilateral air entry, few rhonchi. CARDIOVASCULAR: S1, S2. No murmurs, rubs, or gallops. ABDOMEN: Soft, nontender. EXTREMITIES: No clubbing, no cyanosis, there is 1+ to 2+ edema. INTEGUMENT: No rash, no purpura. LABS: 4.9 potassium, 34 BUN, 5.5 creatinine. IMPRESSION AND PLAN: 1. Fluid overload. 2. Pneumonia. 3. Pleural effusions, recently in remission. 4. End-stage renal disease. 5. Weakness. 6. failure to thrive Will continue to follow up closely. Repeat another x-ray in the morning. Repeat assessments. The patient is too sick for nursing facility and definitely is okay for long-term acute care facility at this point. Patient remains in very guarded condition. Job#: [id number] DR WIGGINS
[2017-09-05 23:37] VITALS: BP 105/58
[2017-09-06 04:55] VITALS: BP 94/51
--- NOTE | 2017-09-06 05:35 | Diagnostic Imaging Report ---
EXAMINATION: CHEST SINGLE (PORTABLE) INDICATION: CT chest. COMPARISON: 09/05/2017 FINDINGS: TUBES and LINES: The pacemaker is intact. LUNGS: Lungs are not well inflated. There are worsening perihilar interstitial opacities, consistent with interstitial edema. PLEURA: No pleural effusion or pneumothorax. HEART AND MEDIASTINUM: Cardiac size is moderately enlarged. There are atherosclerotic calcifications within the aorta. BONES AND SOFT TISSUES: No acute osseous lesion. Soft tissues are unremarkable. UPPER ABDOMEN: No free air under the diaphragm. IMPRESSION: Worsening cardiogenic pulmonary edema Signed by: Dr. Brian Page M.D. on 09/06/2017 5:32 AM
[2017-09-06] MEDS: LINEZOLID 600 MG/D5W 300ML 300 ML IV SCH (05:42)
[2017-09-06 06:06] LABS: BASOPHILS % 0.2 % (0.0-1.0); EOSINOPHILS # (AUTO) 0.2 (0.0-0.4); EOSINOPHILS % 1.1 % (0.0-6.0); HEMATOCRIT 29.1 % (34.2-44.1); HEMOGLOBIN 9.6 g/dL (12.0-16.0); LYMPHOCYTES # (AUTO) 1.9 (1.0-3.2); LYMPHOCYTES % 10.2 % (18.0-39.1); MEAN CORPUSCULAR HEMOGLOBIN 31.9 pg (28-32); MEAN CORPUSCULAR VOLUME 96.7 fL (81-99); MONOCYTES % 5.7 % (4.4-11.3); NEUTROPHILS % 82.3 % (38.7-80.0); PLATELET COUNT 289 x10e3/uL (140-360); RED BLOOD COUNT 3.01 x10e6/uL (3.6-5.1); RED CELL DISTRIBUTION WIDTH 16.7 % (11.7-14.4)
[2017-09-06 06:33] LABS: ALBUMIN 2.3 g/dL (3.5-5.0); ALBUMIN/GLOBULIN RATIO 0.7 (0.8-2.0); ANION GAP 16.9 mmol/L (8-16); CALCIUM 9.3 mg/dL (8.4-10.2); CREATININE, SERUM 6.62 mg/dL (0.57-1.11); POTASSIUM 4.9 mmol/L (3.5-5.1)
[2017-09-06] MEDS: CINACALCET 30 MG TAB PO SCH (09:00)
[2017-09-06] MEDS: NIACIN 500 MG TABSR PO SCH (09:00)
[2017-09-06] MEDS: SEVELAMER CARBONATE 800 MG TAB PO SCH ×2 (09:00→11:41)
[2017-09-06] MEDS: MEGACE 400MG/ 10ML CUP PO SCH (09:00)
[2017-09-06] MEDS: APIXABAN 5 MG TABLET PO SCH (09:00)
[2017-09-06] MEDS: ASPIRIN 81 MG ENTERIC COATED PO SCH (09:00)
[2017-09-06] MEDS: FLUCONAZOLE 200 MG/100 ML 100 ML IV SCH (09:00)
--- NOTE | 2017-09-06 11:17 | Progress Note ---
DATE: September 06, 2017 REASON FOR CONSULTATION: ESRD. SUBJECTIVE: No acute events overnight. Seen on dialysis. Acute blood flow 300 mL/min. OBJECTIVE: General: Lying comfortably in bed. Vital signs: Temperature 96.3, heart rate 92, respiratory rate 13, blood pressure 94/51. O2 sat is 97% on 2 L nasal cannula. LABS: Hemoglobin 9.6, white blood cell count 18.2. Sodium 129. MEDICATIONS: Reviewed on electronic medical record. IMAGING: Chest x-ray performed today showed worsening cardiopulmonary edema. ASSESSMENT AND PLAN 1. End-stage renal disease. Will continue dialysis on Wednesday, Wednesday and Wednesday schedule. The blood pressures are very low, and she has not been able to tolerate dialysis effectively. Off antihypertensives, the blood pressures are still in the 90s over 40s. Will attempt to remove fluid as much as possible without causing further decompensation. 2. Hyperphosphatemia. Continue Renvela. 3. Secondary hyperparathyroidism. Continue Sensipar. Job#: [id number]
--- NOTE | 2017-09-06 11:22 | Progress Note ---
DATE: September 06, 2017 CARDIOLOGY PROGRESS NOTE SUBJECTIVE: Patient denies chest pain or shortness of breath. She was seen in hemodialysis. OBJECTIVE VITALS: Temperature 96.3 degrees, pulse 92, respiratory rate 13, blood pressure 94/51, oxygen saturation 97% on 2 L nasal cannula. GENERAL: Awake, alert, in no acute distress. Elderly woman, frail. LUNGS: Clear to auscultation bilaterally. No wheezes or crackles. CARDIOVASCULAR: Normal rate. Regular rhythm. No murmur. Normal S1, S2. ABDOMEN: Soft, nontender. EXTREMITIES: No edema. CARDIAC MEDICATIONS 1. Niacin 500 mg p.o. daily. 2. Apixaban 5 mg p.o. b.i.d. 3. Aspirin 81 mg p.o. daily. LABS: WBC 18.22, hemoglobin 9.6, hematocrit 29.1, platelets 289,000. Sodium 129, potassium 4.9, chloride 93, CO2 24, BUN 40, creatinine 6.62. TELEMETRY: Normal sinus rhythm. IMPRESSION 1. Sitry-kx-diywabh systolic and diastolic heart failure. 2. End-stage renal disease on hemodialysis. 3. Volume overload secondary to above. 4. Vlo-WC-uuohhsimm myocardial infarction. 5. Multivessel coronary artery disease. 6. Hypertension. 7. Hyperlipidemia. RECOMMENDATIONS: Volume management per nephrology given end-stage renal disease. Continue current cardiac medications. Elevated troponin is likely ptj-EZ-ztmlynrly myocardial infarction, but it could also be demand ischemia in the setting of hypotension. The patient has previously declined coronary artery bypass surgery due to the surgical risks. Continue conservative medical therapy. Continue Eliquis for CVA prophylaxis. No CAILIN or ARB due to end-stage renal disease. Beta blockade was stopped due to hypotension during hemodialysis. If patient has no further hypotension, could consider rechallenging with low-dose metoprolol. However, if the patient continues to have low blood pressure, will hold off for now. Thank you for this consult. We will continue to follow. Job#: [id number]
[2017-09-06] MEDS: ERTAPENEM 1GM/NS 100ML 100 ML IV SCH (11:41)
[2017-09-06 12:31] VITALS: BP 107/57
--- NOTE | 2017-09-07 | Progress Note ---
DATE: September 06, 2017 PULMONARY MEDICINE PROGRESS NOTE SUBJECTIVE: Ms. Loza was seen and examined at bedside. She has lot of weakness. However, she spontaneously awakens on minimal stimulus. 2 liters per minute of oxygen. Chest x-ray showed worse edema. REVIEW OF SYSTEMS: No headaches, no rash. OBJECTIVE: VITAL SIGNS: Afebrile, vital signs noted per electronic record. GENERAL: In no acute distress, alert and calm. HEENT: Normocephalic, atraumatic. NECK: Supple. Throat midline. LUNGS: Bilateral air entry, few crackles, few rhonchi. CARDIOVASCULAR: S1, S2. No murmurs, rubs, or gallops. ABDOMEN: Soft, nontender. EXTREMITIES: No clubbing, no cyanosis, there is 1+ to 2+ edema. INTEGUMENT: No rash, no purpura. IMPRESSION AND PLAN: 1. Fluid overload. 2. Pneumonia. 3. Recurrent pleural effusion. 4. Weakness. 5. End-stage renal disease. Continue current treatment. See above orders. Repeat white count intermittently and ensure it improves. Follow up closely. Job#: [id number]
== END 2017-09-06 14:02 | DRG 291 ==
LOC: ER 06:08 → ERHOLD 11:15 → MED/SURG3 22:35 → ICU 09-01 11:58 → IMCU 09-02 15:49
PROC: 5A1D70Z Performance of Urinary Filtration, Intermittent, Less than 6 Hours Per Day (ICD-10-PCS; principal; 2017-08-30)
PROC: 5A1D70Z Performance of Urinary Filtration, Intermittent, Less than 6 Hours Per Day (ICD-10-PCS; 2017-08-31)
DX: I13.2 Hypertensive heart and chronic kidney disease with heart failure and with stage 5 chronic kidney disease, or end stage renal disease (principal); N18.6 End stage renal disease; J69.0 Pneumonitis due to inhalation of food and vomit; J96.01 Acute respiratory failure with hypoxia; A41.9 Sepsis, unspecified organism; G93.40 Encephalopathy, unspecified; I50.43 Acute on chronic combined systolic (congestive) and diastolic (congestive) heart failure; E87.4 Mixed disorder of acid-base balance; E46 Unspecified protein-calorie malnutrition; B37.49 Other urogenital candidiasis; Z99.2 Dependence on renal dialysis; B95.2 Enterococcus as the cause of diseases classified elsewhere; E87.6 Hypokalemia; I25.10 Atherosclerotic heart disease of native coronary artery without angina pectoris; I25.2 Old myocardial infarction; D63.1 Anemia in chronic kidney disease; E11.22 Type 2 diabetes mellitus with diabetic chronic kidney disease; I95.3 Hypotension of hemodialysis; I42.8 Other cardiomyopathies; R62.7 Adult failure to thrive; E83.39 Other disorders of phosphorus metabolism; Z68.25 Body mass index [BMI] 25.0-25.9, adult; I48.91 Unspecified atrial fibrillation; Z79.01 Long term (current) use of anticoagulants; Z95.810 Presence of automatic (implantable) cardiac defibrillator; D35.1 Benign neoplasm of parathyroid gland
CPT/HCPCS: 36415; 36600; 51700; 70450; 71045; 78070; 80048; 80053; 80061; 81001; 82550; 82553; 82652; 82805; 82948; 83605; 83735; 83880; 83970; 84100; 84165; 84484; 85025; 85610; 85730; 86704; 86705; 86706; 87040; 87086; 87186; 87340; 90962; 93005; 93306; 93925; 94660; 97139; 99284; A9502; J1450; J2020; J2150; J2543; J3370; J7030; J7040; J7050